=== PATIENT | male | born 1965 | race Caucasian/White ===

== ENCOUNTER 2024-08-22 12:00 | Emergency (ER) | payer OTHER, SELFPAY ==
[2024-08-22 12:13] VITALS: BP 146/96; PULSE 80; RESP 16; TEMP 36.3; O2SAT 98
[2024-08-22 12:30] VITALS: BP 146/97; PULSE 78; RESP 16; O2SAT 98
--- OUTSIDE RECORDS SUMMARY | 2024-08-22 13:05 | XMS_ITS | Clinical Summary ---
Author Organization [facility] Address [address] [place] [address] Phone Care Team Providers Care Resort Keeper Name Role Phone Ricco Teran MD Primary Care Provider Allergies No known active allergies Medications acetaminophen (TYLENOL) 500 mg tablet Take 2 Tablets (1,000 mg) by mouth every 8 hours. 3 Active docusate sodium (COLACE) 100 mg capsule Take 1 Capsule (100 mg) by mouth 2 times daily. 3 Active oxyCODONE (ROXICODONE) 5 mg tabletIndicatio ns:Contusion of abdominal wall, initial encounter Take 1 Tablet (5 mg) by mouth every 4 hours as needed for Pain. Max Daily Amount: 6 tablets 30 Tablet 3 Active sildenafiL (VIAGRA) 100 mg tabletIndicatio ns:Erectile dysfunction, unspecified erectile dysfunction type Take 1 Tablet (100 mg) by mouth 1 time daily as needed for Erectile Dysfunction. Do NOT take within 24 hours of taking nitroglycerin 30 Tablet 2 3 Active naloxone (NARCAN) 4 mg/spray [place], Non-Aerosol EMERGENCY USE ONLY: Administer 1 spray (4 mg) in one nostril one time. May repeat in alternating nostrils every 2-3 min until responsive or EMS arrives. 2 Each 3 4 Active empagliflozin (Jardiance) 10 mg tablet Take 1 Tablet (10 mg) by mouth daily in the morning. 90 Tablet 3 4 Active furosemide (LASIX) 20 mg tablet TAKE 1 TAB BY MOUTH 1 TIME DAILY NEEDED FOR WEIGHT GAIN 3 POUNDS OVERNIGHT/5 POUNDS IN A WEEK, SWELLING, SHORTNESS OF BREATH). 90 Tablet 3 4 Active aspirin (ECOTRIN EC) 81 mg Tablet, Delayed Release (E.C.) TAKE 1 TABLET BY MOUTH EVERY DAY 90 Tablet 3 4 Active methocarbamoL (ROBAXIN) 500 mg tablet TAKE 1 TABLET (500 MG) BY MOUTH 4 TIMES DAILY. 90 Tablet 4 Active ezetimibe (ZETIA) 10 mg tablet Starting 01/10: Take 1 Tablet (10 mg) by mouth daily. 90 Tablet 3 5 Active atorvastatin (LIPITOR) 40 mg tablet Take 1 Tablet (40 mg) by mouth daily at bedtime. 90 Tablet 3 5 Active spironolactone (ALDACTONE) 25 mg tablet Take 1 Tablet (25 mg) by mouth daily. 90 Tablet 3 5 Active losartan (COZAAR) 25 mg tablet Take 1 Tablet (25 mg) by mouth daily. 90 Tablet 3 5 Active nitroglycerin (NITROSTAT) 0.4 mg Tablet, Sublingual Place 1 Tablet (0.4 mg) under tongue every 5 minutes as needed for Chest Pain. 25 Tablet 3 5 Active clopidogreL (PLAVIX) 75 mg Tablet Take 1 Tablet (75 mg) by mouth daily. 100 Tablet 3 5 Active metoprolol succinate (TOPROL XL) 50 mg Extended Release 24 hour tablet Take 1 Tablet (50 mg) by mouth daily. 90 Tablet 2 5 Active Active Problems Patient Care Coordination No te Formatting of this note migh t be different from the original. Dr Heard Audit Manager AWV 12/18/2018, 12/22/19, 05/03/2022, 01/27/2024 Problem Noted Date Diagnosed Date ICD (implantable cardioverter-defibrillator) in place 08/03/2024 Prediabetes 01/27/2024 MRSA bacteremia 01/13/2024 Septic thrombophlebitis 01/13/2024 Pneumonia of right upper lobe due to infectious organism 01/12/2024 Overview (03/16/2024): CT 04/07 Right upper lobe area of increased density now has more the appearance of atelectasis. Interval resolution of two opacities present adjacent to this. History of [place] (myocardial infarction) 01/08/2024 Essential hypertension 05/01/2023 HFrEF (heart failure with reduced ejection fract ion) 01/25/2023 Overview (01/24/2024): Echo EF 30% 01/05 Echo EF 40% 04/06 Echo EF 45-50% 01/06 Echo EF 50% 02/05 Anginal equivalent 01/24/2023 Coronary artery disease of n ative artery of [place] heart with stable angina pectoris 01/04/2023 Overview (01/13/2024): Cath 01/05 Mid LAD 90%, 1st Diag 85%, Mid Cx 45% Successful PCI of mid LAD with LIZETH. Cath 01/06 LAD patent proximal and mid segment stent with modest amount of restenosis. Between these stents is 70-80% diffuse narrowing. LIZETH Circumflex unremarkable & RCA patent with mild diffuse disease. Alcohol abuse 10/10/2020 Overview (10/10/2020): Hosp 09/26- for alcohol and meth use. [place] 600 mg HS Gabapentin 300 mg TID Vivitrol 380 mg IM Thiamine Zyprexa 15 mg HS NAC 600 mg QID Aristada [address] Horvath Methamphetamine use disorder, mild 10/10/2020 Low vitamin B12 level 09/27/2020 Vitamin D deficiency 09/27/2020 Pure hypercholesterolemia 12/23/2018 Overview (12/23/2018): ASCVD 10 year risk 3.9% 12/23/2018 ADD (attention deficit disorder) 12/18/2018 Rupture of left distal biceps tendon 08/06/2018 Erectile dysfunction 06/28/2005 Resolved Problems Problem Noted Date Diagnosed Date Resolved Date Coronary artery disease invo lving [place] coronary artery of [place] heart without angina pectoris 05/05/2024 07/27/2024 Benign hypertension 05/05/2024 07/28/19 25 Mixed hyperlipidemia 05/05/2024 025 Cavitary lesion of lung 01/14/202406/14 S/P coronary artery stent placement 01/13/2024 07/27/2024 Pleuritic chest pain 01/13/2024 024 GERARDO (acute kidney injury) 01/12/2024 NSTEMI (non-ST elevated myoc ardial infarction) 01/08/2024 08/18/2024 Contusion of abdominal wall 02/04/2023 01/24/2024 Closed fracture of left elbow 02/01/2023 08/18/2024 Closed displaced fracture of olecranon process with intraarticular extension of left ulna 02/01/2023 08/18/2024 Dislocation of left radial head 02/01/2023 08/18/2024 Closed displaced fracture of coronoid process of left ulna 02/01/2023 08/18/2024 Preoperative cardiovascular examination 02/01/2023 01/24/2024 Chronic HFrEF (heart failure with reduced ejection fraction) 02/01/2023 01/24/2024 Hx of coronary artery disease 01/25/2023 01/24/2024 Nausea vomiting and diarrhea 01/25/2023 01/24/2024 Coronary artery disease with stable angina pectoris 01/25/2023 01/24/2024 Acute on chronic HFrEF (hear t failure with reduced ejection fraction) 01/08/2023 01/24/2024 Hypoxia 01/08/2023 01/24/2024 Shortness of breath 01/08/2023 01/24/20 24 Edema of right lower extremity 01/05/2023 01/24/2024 Chest pain 01/04/2023 01/24/2024 New onset of congestive heart failure 01/04/2023 01/24/2024 Ischemic Cardiomyopathy 01/04/202301/13 Rash 01/19/2020 01/24/2024 Family hx-leukemia 12/22/2018 9 Overview (12/22/2018): Mother was DXed Family history of lymphoma 12/22/2018 0 12/23/2018 Overview (12/22/2018): Father was Dx's Family history of colon canc er requiring screening colonoscopy 12/22/2018 12/23/2018 Overview (12/22/2018): Mother Dx's Unilateral recurrent inguina l hernia without obstruction or gangrene, left 06/14/2015 12/15/2018 Unilateral inguinal hernia, right 06/14/2015 12/15/2018 Methotrexate, mcfp, current use 09/23/2013 09/23/2013 Methamphetamine addiction 09/23/2013 Tobacco use disorder 09/23/2013 019 Cellulitis of pinna 09/22/2013 12/16/19 19 Neck pain 06/16/2011 09/22/2013 Unspecified disorder of male genital organs 06/28/2005 12/13/2009 Screening for diabetes mellitus 06/28/2005 12/13/2009 Screening for lipoid disorders 06/28/2005 12/13/2009 Other and unspecified noninf ectious gastroenteritis and colitis(558.9) 06/28/200512/13 Routine general medical exam ination at a health care facility 06/19/2004 12/13/2009 Family history of diabetes mellitus 06/19/2004 12/15/2018 Tobacco use disorder 06/19/2004 019 Encounters Date Type Department Care Team Description 08/18/2024 External Device Data STL ABSTRACTION Provider, Abstract 08/04/2024 External Device Data STL ABSTRACTION Provider, Abstract 07/28/2024 External Device Data STL ABSTRACTION Provider, Abstract 06/30/2024 External Device Data STL ABSTRACTION Provider, Abstract 06/24/2024 External Device Data STL ABSTRACTION Provider, Abstract 06/24/2024 External Device Data STL ABSTRACTION Provider, Abstract 06/23/2024 External Device Data STL ABSTRACTION Provider, Abstract 06/23/2024 External Device Data STL ABSTRACTION Provider, Abstract 06/17/2024 Abstract [facility] Internal [facility] [place] [id number] [place] [id number] Ricco Teran MD from Last 3 Months Immunizations Immunization Administration Dates Next Due (ADACEL/BOOSTRIX)(10 YR UP) TDAP VACCINE, 0.5ML, IM 01/31/2023,06/15/2014,12/12/2009 Influenza Seasonal Unspecifi ed Formulation IM 04/21/2020,04/27/2008 Pneumococcal conjugate, unsp ecified formulation 04/27/2008 Family History Medical History Relation Name Comments Heart Disease Father Leukemia Father Lymphoma Father Cancer Mother Colon Cancer Mother Hypertension Mother Leukemia Mother Lung Cancer Mother Other Mother Carl Maradiaga Relation Name Status Comments Father Mother Social History Tobacco Use Types Packs/Day Years Used Date Smoking Tobacco: Former Cigarettes 0.5 10 1 06/12/2005 - 04/11/2016 Passive Smoke Exposure: Past Smokeless Tobacco: Never Tobacco Cessation:Counseling Given: Not Answered Alcohol Use Standard Drinks/Week Comments Yes 4.2 (1 standard drink = 0.6 oz p ure alcohol) drinks every 4 days Feeling Safe Answer Date Recorded Are you in a relationship wi th someone who hurts you emotionally and/or physically? 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 Gender Identity Not on file Sexual Orientation Not on file Occupation Industry Job Start Date Job End Date Not on file Not on file Not on file Not on file Last Filed Vital Signs Vital Sign Reading Time Taken Comments Blood Pressure 170/100 05/05/2024 10:02 AM MUSSEL FARMER Pulse 98 05/05/2024 10:02 AM MUSSEL FARMER Temperature 36.8 C (98.2 F) 01/17/2024 6:07 AM CDT Respiratory Rate 16 01/27/2024 11:04 AM CDT Oxygen Saturation 100% 05/05/2024 10:02 AM MUSSEL FARMER Inhaled Oxygen Concentration - - Weight 78 kg (172 lb) 05/05/2024 10:02 AM MUSSEL FARMER Height 170.2 cm (5' 7 ) 05/05/2024 10:02 AM MUSSEL FARMER Body Mass Index 26.94 05/05/2024 10:02 AM MUSSEL FARMER Plan of Treatment Upcoming Encounters Date Type Department Care Team (Late st Contact Info) Description 08/25/2024 8:30 AM CDT Office Visit [facility] [place] [address] [facility] [address] [place] [phone] Allan Heard MD [address] [facility] [address] [place] [address] 11/02/2024 10:00 AM CDT Office Visit [facility] [place] [address] [facility] [address] [place] [address] Xiomara Beaulieu NP [facility] [address] [facility] [address] [place] [address] Health Maintenance Due Date Last Done Comments HEPATITIS B VACCINES (1 of 3 - 19+ 3-dose series) 1984 FIT-DNA Q 3 years 2010 FIT/FOBT Q 1 year 2010 Flex Sig/CT Colonography Q 5 years 2010 ZOSTER VACCINE (1 of 2) 2015 INFLUENZA VACCINE (#1) 2023 04/21/2020, 2008 COVID-19 Vaccine (2023-2 5 season) 2023 08/18/2020, 07/28/2020 Preventative Visit- Commercial 04/15/2024 1 , 05/03/2022, 12/18/2018, Additional history exists Pre-Diabetes and Diabetes Screening 01/07/2027 01/08/2024, 01/04/2023 COLORECTAL SCREENING 02/10/2029 02/10/2019, 02/11/20 Colorectal Cancer Screening 02/10/2029 DTAP/TDAP/TD VACCINES (4 - T d or Tdap) 01/31/2033 01/31/2023, 06/15/2014, 12/12/2009 Abdominal Aortic Aneurysm (A AA) Screening Completed 03/14/2024 Goals Goal Patient Goal Type Associated Problems Recent Progress Patient-Stated? Author Heart Failure Goal Care Plan Heart Failure Problem No Jeffry, Ricco A, MD Heart Failure Goal Care Plan Heart Failure Problem No Ricco Teran MD Heart Failure Goal Care Plan Heart Failure Problem Ricco Arevalo MD Heart Failure Goal Care Plan Heart Failure Problem No Zahira Wynne LPN Heart Failure Goal Care Plan Heart Failure Problem No Zahira Wynne, ENROLLMENT MANAGEMENT COORDINATOR Medical Devices Implanted Type Area Turner Splitter Machine Operator Device Identifier Shelf Expiration Date Model / Serial / Lot Mesh Parietex Progrip [id number] - [id number] Implanted:Qty: 1 on 04/25/2016 by Franicsco Murrieta MD at [facility] Mesh Right: Inguinal COVIDIEN- [place] SURG [id number] 08/12/2020 [id number] / / [id number] Plate Lcp Adaption 2.4mm 247.366 - Sload 29 Sterilized Jan 31, 2023 Implanted:Qty: 1 on 02/05/2023 by Deep France MD at [facility] Plate Left: Elbow J&J- DEPUY SYNTHES 247.366 / LOAD 29 STERILIZED JAN 31, 2023 / Plate Olecranon Va-Lcp 02.107.304 - Sload 113 Sterilized Feb 02, 2023 Implanted:Qty: 1 on 02/05/2023 by Deep France MD at [facility] Plate Left: Elbow J&J- DEPU[employer] SY[employer]THES 02.107.304S / LOAD 113 STERILIZED FEB 02, 2023 / Plate-Y Lcp 2.4mm 3hd Hole 249.669 - Sload 29 Sterilized Jan 31, 2023 Implanted:Qty: 1 on 02/05/2023 by Deep France MD at [facility] Plate Left: Elbow J&J- [employer]PU[employer] SY[employer]ES 249.669 / LOAD 29 STERILIZED JAN 31, 2023 / Screw Cortex Slftp T8 2.4x16mm 201.766 - Sload 29 Sterilized Jan 31, 2023 Implanted:Qty: 1 on 02/05/2023 by Deep France MD at [facility] Screw Left: Elbow J&J- DEPU[employer] SY[employer]ES 201.766 / LOAD 29 STERILIZED JAN 31, 2023 / Screw St Va Loc 2.7x26mm 02.211.026 - Sload 15 Sterilized Feb 04, 2023 Implanted:Qty: 1 on 02/05/2023 by Deep France MD at [facility] Screw Left: Elbow J&J- DEPUY SYN[employer]ES 02.211.026 / LOAD 15 STERILIZED FEB 04, 2023 / Screw St Va Loc 2.7x20mm 02.211.020 - Sload 15 Sterilized Feb 04, 2023 Implanted:Qty: 1 on 02/05/2023 by Deep France MD at [facility] Screw Left: Elbow J&J- DEPUY SY[employer]ES 02.211.020 / LOAD 15 STERILIZED FEB 04, 2023 / Screw St Va Loc 2.7x34mm 02..034 - Sload 15 Sterilized Feb 04, 2023 Implanted:Qty: 1 on 02/05/2023 by Deep France MD at [facility] Screw Left: Elbow J&J- DEPU[employer] SYNTHES 02.211.034 / LOAD 15 STERILIZED FEB 04, 2023 / Screw St Va Loc 2.7x60mm 02..060 - Sload 15 Sterilized Feb 04, 2023 Implanted:Qty: 1 on 02/05/2023 by Deep France MD at [facility] Screw Left: Elbow J&J- DEPUY SYNTHES 02.211.060 / LOAD 15 STERILIZED FEB 04, 2023 / Screw St Va Loc 2.7x50mm 02.211.050 - Sload 15 Sterilized Feb 04, 2023 Implanted:Qty: 1 on 02/05/2023 by Deep France MD at [facility] Screw Left: Elbow J&J- DEPUY SYNTHES 02.211.050 / LOAD 15 STERILIZED FEB 04, 2023 / Screw St Va Loc 2.7x40mm 02.211.040 - Sload 15 Sterilized Feb 04, 2023 Implanted:Qty: 1 on 02/05/2023 by Deep France MD at [facility] Screw Left: Elbow J&J- DEPUY SYNTHES 02.211.040 / LOAD 15 STERILIZED FEB 04, 2023 / Screw Mtphysl St T8 2.7x22mm 02.118.522 - Sload 15 Sterilized Feb 04, 2023 Implanted:Qty: 1 on 02/05/2023 by Deep France MD at [facility] Screw Left: Elbow J&J- DEPUY SYNTHES 02.118.522 / LOAD 15 STERILIZED FEB 04, 2023 / Screw St Loc Stdrv 3.5x20mm 212.106 - Sload 15 Sterilized Feb 04, 2023 Implanted:Qty: 2 on 02/05/2023 by Deep France MD at [facility] Screw Left: Elbow J&J- DEPUY SYNTHES 212.106 / LOAD 15 STERILIZED FEB 04, 2023 / Screw St Loc Stdrv 3.5x18mm 212.105 - Sload 15 Sterilized Feb 04, 2023 Implanted:Qty: 1 on 02/05/2023 by Deep France MD at [facility] Screw Left: Elbow J&J- DE[employer]ES 212.105 / LOAD 15 STERILIZED FEB 04, 2023 / Screw Cortex Slftp 3.5x26mm 204.826 - Sload 15 Sterilized Feb 04, 2023 Implanted:Qty: 1 on 02/05/2023 by Deep France MD at [facility] Screw Left: Elbow J&J- DEPUY SYNTHES 204.826 / LOAD 15 STERILIZED FEB 04, 2023 / 2.0 X 20mm Cchs Lt Implanted:Qty: 2 on 02/05/2023 by Deep France MD at [facility] Screw Left: Elbow SYNTHES LTD Eu[employer]ing 04.334.020 / / Description:[employer] [place] COMP ONETS ON REQUISITION# [id number] Screw Cortex Slftp T8 2.4x26mm 201.776 - Sload 29 Sterilized Jan 31, 2023 Implanted:Qty: 2 on 02/05/2023 by Deep France MD at [facility] Screw Left: Elbow J&J- DEPUY SYNTHES 201.776 / LOAD 29 STERILIZED JAN 31, 2023 / Screw Cortex Slftp T8 2.4x10mm 201.760 - Sload 29 Sterilized Jan 31, 2023 Implanted:Qty: 4 on 02/05/2023 by Deep France MD at [facility] Screw Left: Elbow J&J- DEPUY SYNTHES 201.760 / LOAD 29 STERILIZED JAN 31, 2023 / Stent Synergy Xd 2.65h87uj Evrlms Elut [id number] - [id number] Implanted:Qty: 1 on 01/07/2023 at [facility] Stent Left: Coronary [employer] 12/18/2023 [id number] / / [id number] Stent Synergy Xd 3.0x24mm Evrlms Elut [id number] - [id number] Implanted:Qty: 1 on 01/25/2023 at [facility] Stent N/A: Coronary [employer] 10/19/2023 [id number] / / [id number] Stent Synergy Xd 2.44v55qw Evrlms Elut [id number] - [id number] Implanted:Qty: 1 on 01/09/2024 by Isha Rn Telehealth () MD Julián at [facility] Stent N/A: Heart [employer] [id number] 10/01/2025 [id number] / / [id number] Stent Synergy Xd 3.0x16mm Evrlms Elut [id number] - [id number] Implanted:Qty: 1 on 01/09/2024 by Isha Rn Telehealth () MD Julián at [facility] Stent N/A: Heart [employer] [id number] 07/01/2025 [id number] / / [id number] Radial Head W/ 022mm Hd, 06.5mm Stm, 10(+0)Mm Hd Ht, Ster Implanted:Qty: 1 on 02/05/2023 by Deep France MD at [facility] Left: Elbow [employer] 01/12/2027 09.405.260S / / [id number] Explanted Type Area Turner Splitter Machine Operator Device Identifier Shelf Expiration Date Model / Serial / Lot Screw Cortex Slftp T8 2.4x28mm 201.778 - Sload 29 Sterilized Jan 31, 2023 Explanted:Qty: 1 on 02/05/2023 at [facility] Screw Left: Elbow J&J- DEPUY SYNTHES 201.778 / LOAD 29 STERILIZED JAN 31, 2023 / Screw Cortex Slftp T8 2.4x6mm 201.756 - Sload 29 Sterilized Jan 31, 2023 Explanted:Qty: 1 on 02/05/2023 at [facility] Screw Left: Elbow J&J- DEPUY SYNTHES 201.756 / LOAD 29 STERILIZED JAN 31, 2023 / Radial Head W/ 025mm Hd, 06.5mm Stm, 11 (+0)Mm Hdht, Ster Explanted:Qty: 1 on 02/05/2023 at [facility] Left: Elbow [employer] 07/13/2025 09.405.560S / / [id number] Procedures Procedure Name Priority Date/Time Associated Diagnosis Comments HEMOGLOBIN A1C Stat 01/08/2024 5:45 AM CDT COLONOSCOPY REPORT 02/10/2019 4: 54 PM CDT from Last 3 Months or Most Recently Relevant to Health Maintenance Results * (ABNORMAL) HEMOGLOBIN A1C (01/08/2024 5:45 AM CDT) HEMOGLOBIN A1C 6.1(H) <5.7 % 01/08/2024 11:56 AM CDT [facility] EST. AVG GLUCOSE, A1C 128 mg/dL 01/08/2024 11:56 AM CDT [facility] Blood Venipuncture / Unknown 01/08/2024 5:45 AM CDT 01/08/2024 5:54 AM CDT Narrative [facility] - 01/08/2024 11:56 AM CDT HGB A1C INTERPRETATION NORMAL: <5.7% PRE-DIABETES: 5.7 - 6.4% DIABETES: 6.5% OR GREATER us Gina Martinez NP CHEMISTRY ORDERABLES Final R esult [facility] [id number] [address] [place] [address] * COLONOSCOPY REPORT (02/10/2019 4:54 PM CDT) Narrative Procedure Note Jorge Luis Flaherty MD - 02/10/2019 4:53 PM CDT [facility] Endoscopy Patient Name: Alexi Florian Procedure Date: 02/10/2019 Date of : 1965 Admit Type: Outpatient Attending MD: Jorge Luis Flaherty , Procedure: Colonoscopy Indications: Screening for colorectal malignant neoplasm Providers: Jorge Luis Flaherty Referring MD: Medicines: Propofol per Anesthesia Complications: No immediate complications. Procedure: Informed consent was obtained for the procedure, including moderate sedation after risks were discussed. Based on the pre-procedure assessment, including review of the patient's medical history, medications, allergies, and review of systems, the patient was deemed to be an appropriate candidate for sedation. A timeout was performed. Continuous ECG monitoring, pulse oximetry, blood pressure monitoring, and direct observation were performed. The Colonoscope was introduced through the anus and advanced to the cecum, identified by appendiceal orifice and ileocecal valve. The colonoscopy was somewhat difficult due to inadequate bowel prep. The quality of the bowel preparation was fair. Estimated Blood Loss: Estimated blood loss: none. Findings: A 10 mm polyp was found in the descending colon. The polyp was sessile. The polyp was removed with a cold snare. Resection and retrieval were complete. The exam was otherwise without abnormality. Impression: - Preparation of the colon was fair. - One 10 mm polyp in the descending colon, removed with a cold snare. Resected and retrieved. - The examination was otherwise normal. Recommendation: - Discharge patient to home. - Patient has a contact number available for emergencies. The signs and symptoms of potential delayed complications were discussed with the patient. Return to normal activities tomorrow. Written discharge instructions were provided to the patient. - Repeat colonoscopy in 5 years for surveillance. Jorge Luis Flaherty, 02/10/2019 4:53:39 PM Number of Addenda: [address]; [place] [address] Jorge Luis Falherty MD GI PROCEDURE ORDERABLES Fi nal Result from Last 3 Months or Most Recently Relevant to Health Maintenance Additional Health Concerns Active Problems Noted Date Diagnosed Date Heart Failure Problem 03/16/2024 Heart Failure Problem 03/16/2024 Heart Failure Problem 03/16/2024 Heart Failure Problem 03/16/2024 Heart Failure Problem 03/16/2024 Insurance [address] [address] RX INFOCROSSING Medicaid RX [facility] Commercial RX [employer] (INTERNAL) [facility] RX [place] Commercial [address] [address] Advance Directives For more information, please contact: [phone] * Full Code (Latest Code Status on File) Date Activated Date Inactivated Comments 01/12/2024 1:55 PM 01/17/2024 12:44 PM * Full Code Date Activated Date Inactivated Comments 01/09/2024 7:13 PM 01/10/2024 1:45 PM * Full Code Date Activated Date Inactivated Comments 01/08/2024 11:29 AM 01/09/2024 7:13 PM * Full Code Date Activated Date Inactivated Comments 02/05/2023 10:18 PM 02/08/2023 6:46 PM * Full Code Date Activated Date Inactivated Comments 02/01/2023 12:56 AM 02/05/2023 10:18 PM Care Teams Resort Keeper Relationship Specialty Start Date End Date Ricco Teran MD PCP - General Internal Medicine 12/08/18
--- OUTSIDE RECORDS SUMMARY | 2024-08-22 13:05 | XMS_ITS | Encounter Summary ---
Author Organization [facility] Address 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 Gender Identity Not on file Sexual Orientation Not on file documented as of this encounter Plan of Treatment Upcoming Encounters Date Type Department Care Team (Late st Contact Info) Description 08/25/2024 8:30 AM CDT Office Visit [facility] Heart and Vascular At [address] [place] [address] Allan Heard MD [address] [place] [address] [address] [place] [address] 11/02/2024 10:00 AM CDT Office Visit [facility] Heart and Vascular At [address] [place] [address] Xiomara Beaulieu, FIELD CROP II FARMWORKER [address] [facility] [address] [place] [id number] documented as of this encounter Visit Diagnoses Diagnosis Abdominal pain, unspecified site- Primary documented in this encounter Additional Health Concerns Infection Onset Date Last Indicated Resolved Time R/O COVID-19 01/04/2023 01/04/2023 01/04/2023 9:36 PM CDT R/O GI Pathogen 01/25/2023 01/25/2023 01/26/2023 4 :08 PM CDT R/O COVID-19 01/12/2024 01/12/2024 01/12/2024 12:2 1 PM CDT MRSA Comment:01/12/24 blood 01/12/2024 01/12/2024 02/11/2024 1:16 AM CDT documented as of this encounter Care Teams Neonatal Nurse Relationship Specialty Start Date End Date Ricco Teran MD PCP - General Internal Medicine 12/08/18 documented as of this encounter
--- OUTSIDE RECORDS SUMMARY | 2024-08-22 13:05 | XMS_ITS | Referral Summary ---
Author Organization [facility] Address [address] [place] [address] Care Team Providers Care Laborer Cheesemaking Name Role Phone Ricco Teran MD Primary Care Provider [phone] Allergies No known active allergies Medications meloxicam (MOBIC) 15 mg tablet Take 1 tablet (15 mg total) by mouth daily 30 tablet 3 Active amoxicillin-cla vulanate (AUGMENTIN) 875-125 mg per tablet Take 1 tablet by mouth every 12 (twelve) hours 14 tablet 3 Active aspirin 81 mg enteric coated tablet Take 1 tablet (81 mg total) by mouth daily 3 Active atorvastatin (LIPITOR) 40 mg tablet Take 1 tablet (40 mg total) by mouth daily 3 Active carvediloL (COREG) 6.25 mg tablet Take 1 tablet (6.25 mg total) by mouth 2 times daily 3 Active losartan (COZAAR) 25 mg tablet Take 1 tablet (25 mg total) by mouth daily 3 Active nitroglycerin (NITROSTAT) 0.[address] 1 tablet (0.4 mg total) under the tongue every 5 minutes as needed for chest pain 3 Active sildenafiL (VIAGRA) 100 mg tablet Take 1 tablet (100 mg total) by mouth daily as needed for erectile dysfunction 1 Active spironolactone (ALDACTONE) 25 mg tablet Take 1 tablet (25 mg total) by mouth daily 3 Active ticagrelor (BRILINTA) 90 mg tablet Take 1 tablet (90 mg total) by mouth 2 (two) times a day 3 Active triamcinolone (KENALOG) 0.1 % cream Apply topically 2 (two) times a day 30 g 4 Active diphenhydrAMINE 25 mg capsule Take 1 tablet/capsule (25 mg total) by mouth every 6 (six) hours as needed for itching 20 capsule 4 Active naproxen (NAPROSYN) 500 mg tablet Take 1 tablet (500 mg total) by mouth 2 (two) times a day as needed for pain Take with food. 20 tablet 4 Active traMADoL (ULTRAM) 50 mg tablet Take 1 tablet (50 mg total) by mouth every 6 (six) hours as needed for pain for up to 15 doses 15 tablet 4 Active cyclobenzaprine (FLEXERIL) 10 mg tabletIndicatio ns:Muscle Spasm Take 1 tablet (10 mg total) by mouth every 8 (eight) hours as needed for muscle spasms for up to 15 doses 15 tablet 4 Active Active Problems Problem Noted Date Diagnosed Date Cellulitis of right knee 12/22/2022 Contusion of face 11/01/2021 Upper respiratory tract infection 11/03/2020 Cellulitis of right elbow 11/03/2020 Tonsillitis 11/03/2020 Closed fracture of nasal bones 03/16/2019 Overview (03/16/2019): Added automatically from request for surgery [id number] Immunizations Immunization Administration Dates Next Due Pfizer SARS-CoV-2 Monovalent Vaccination (12+ Yrs) PURPLE 08/18/2020,07/28/2020 Tdap 01/31/2023 Social History Tobacco Use Types Packs/Day Years Used Date Smoking Tobacco: Some Days Cigarettes Last attempted to quit: 2018 Cigars Smokeless Tobacco: Never Tobacco Cessation:Ready to Q uit: Not Asked; Counseling Given: Not Answered Alcohol Use Standard Drinks/Week Comments Yes 6 (1 standard drink = 0.6 oz pur e alcohol) beer every 2-3 days Personal Safety Answer Date Recorded Have you ever been in or are you currently in a harmful physical or emotional relationship or is someone making you feel afraid or unsafe? 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 Gender Identity Not on file Sexual Orientation Not on file Last Filed Vital Signs Vital Sign Reading Time Taken Comments Blood Pressure 145/93 03/14/2024 8:00 AM AMMONIA REFRIGERATION TECHNICIAN Pulse 57 03/14/2024 9:06 AM AMMONIA REFRIGERATION TECHNICIAN Temperature 37.1 C (98.7 F) 03/14/2024 6:36 AM AMMONIA REFRIGERATION TECHNICIAN Respiratory Rate 16 03/14/2024 8:48 AM AMMONIA REFRIGERATION TECHNICIAN Oxygen Saturation 97% 03/14/2024 9:06 AM AMMONIA REFRIGERATION TECHNICIAN Inhaled Oxygen Concentration - - Weight 82.1 kg (180 lb 14.4 oz) 03/14/2024 6:36 AM AMMONIA REFRIGERATION TECHNICIAN Height 170.2 cm (5' 7 ) 03/14/2024 6:36 AM AMMONIA REFRIGERATION TECHNICIAN Body Mass Index 28.33 03/14/2024 6:36 AM AMMONIA REFRIGERATION TECHNICIAN Plan of Treatment Not on file Insurance [facility] [employer] Care Teams Laborer Cheesemaking Relationship Specialty Start Date End Date Ricco Teran MD PCP - General Internal Medicine 03/25/19
--- OUTSIDE RECORDS SUMMARY | 2024-08-22 13:05 | XMS_ITS | Encounter Summary ---
Author Organization [facility] Address [address] [place] [address] Care Team Providers Care Parachute Supervisor Name Role Phone Ricco Teran MD Primary Care Provider [phone] Encounter Details Date Type Department Care Team (Late st Contact Info) Description 10/01/2003 Outpatient Historical [facility] Internal Medicine Medical [place] A [facility] [address] [place] [address] [address] [place] [address] Patric Chavarria MD [address] [place] [address] [address] [place] [address] Social History Tobacco Use Types Packs/Day Years Used Date Smoking Tobacco: Never Assessed Sex and Gender Information Value Date Recorded Sex Assigned at Not on file Legal Sex Male 3:08 AM PROOF TESTER Gender Identity Not on file Sexual Orientation Not on file documented as of this encounter Plan of Treatment Upcoming Encounters Date Type Department Care Team (Late st Contact Info) Description 08/25/2024 8:30 AM CDT Office Visit [facility] Heart and Vascular At [address] [place] [address] Allan Heard MD [address] [place] [address] [address] [place] [address] 11/02/2024 10:00 AM CDT Office Visit [facility] Heart and Vascular At [facility] [address] [facility] [address] [place] [address] Xiomara Beaulieu NP [address] [facility] [address] [place] [address] documented as of this encounter Visit Diagnoses Not on filedocumented in this encounter Additional Health Concerns Infection Onset Date Last Indicated Resolved Time R/O COVID-19 01/04/2023 01/04/2023 01/04/2023 9:36 PM CDT R/O GI Pathogen 01/25/2023 01/25/2023 01/26/2023 4 :08 PM CDT R/O COVID-19 01/12/2024 01/12/2024 01/12/2024 12:2 1 PM CDT MRSA Comment:01/12/24 blood 01/12/2024 01/12/2024 02/11/2024 1:16 AM CDT documented as of this encounter Care Teams Parachute Supervisor Relationship Specialty Start Date End Date Ricco Teran MD PCP - General Internal Medicine 12/08/18 documented as of this encounter
--- OUTSIDE RECORDS SUMMARY | 2024-08-22 13:05 | XMS_ITS | Clinical Summary ---
Author Organization [facility] Address [address] [place] [address] Care Team Providers Care Document Photographer Name Role Phone Ricco Teran MD Primary Care Provider [phone] Allergies No known active allergies Medications meloxicam [...] (03/16/2019): Added automatically from request for surgery [id number] Immunizations Immunization Administration Dates Next Due Pfizer SARS-CoV-2 Monovalent Vaccination (12+ Yrs) PURPLE 08/18/2020,07/28/2020 Tdap 01/31/2023 Surgical History Surgery Date Site/Laterality Comments OTHER SURGICAL HISTORY 04/15/2008 - 04/14/2009 LIH repair w/ mesh 04/23 HERNIA REPAIR COLONOSCOPY Medical History Medical History Date Comments Hypertension Adhd Social History Tobacco Use Types Packs/Day Years Used Date Smoking Tobacco: Some Days Cigarettes Last attempted to quit: 2017 Cigars Smokeless Tobacco: Never Tobacco Cessation:Ready to [...] on file Legal Sex Male 12:55 AM 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1 kg (180 lb 14.4 oz) 03/14/2024 6:36 AM ADAPTED PHYSICAL EDUCATION SPECIALIST Height 170.2 cm (5' 7 ) 03/14/2024 6:36 AM ADAPTED PHYSICAL EDUCATION SPECIALIST Body Mass Index 28.33 03/14/2024 6:36 AM ADAPTED PHYSICAL EDUCATION SPECIALIST Plan of Treatment Health Maintenance Due Date Last Done Comments Colon Cancer Screening-Colonoscopy 1965 Depression Screening 1965 Hepatitis C Screening 1965 Prostate Cancer Screening-PSA 1965 Hepatitis B Screening 1983 Regular Well Visit/Exam 18-64 1983 Pneumococcal vaccine <65 (2 of 2 - PPSV23) 06/22/2008 04/27/2008 Zoster Vaccine (1 of 2) 2015 Covid-19 Vaccine (3 - season) 12/15/202309/2020, 07/28/2020 Influenza Vaccine (#1) 2023 04/21/2020, 2008 DTaP/Tdap/Td Vaccine (4 - Td or Tdap) 01/31/2033 01/31/2023, 06/15/2014, 12/12/2009 Insurance [employer] [address] [employer] Care Teams Document Photographer Relationship Specialty Start Date End Date Ricco Teran MD PCP - General Internal Medicine 03/25/19
--- OUTSIDE RECORDS SUMMARY | 2024-08-22 13:05 | XMS_ITS | Encounter Summary ---
Author Organization [facility] Address [address] [place] [address] Care Team Providers Care Senior Bookkeeper Name Role Phone Ricco Teran MD Primary Care Provider [phone] Encounter Details Date Type Department Care Team (Late st Contact Info) Description 11/28/2000 Outpatient Historical [facility] Internal Medicine Medical [place] A [facility] [address] [place] [address] [address] [place] [address] Patric Chavarria MD [address] [place] [address] [address] [place] [address] Social History Tobacco Use Types Packs/Day Years Used Date Smoking Tobacco: Never Assessed Sex and Gender Information Value Date Recorded Sex Assigned at Not on file Legal Sex Male 3:08 AM DESULFURIZER HAND Gender Identity Not on file Sexual Orientation Not on file documented as of this encounter Plan of Treatment Upcoming Encounters Date Type Department Care Team (Late st Contact Info) Description 08/25/2024 8:30 AM CDT Office Visit [facility] Heart and Vascular At [address] [place] [address] Allan Heard MD [address] [place] [address] [address] [place] [address] 11/02/2024 10:00 AM CDT Office Visit [facility] Heart [facility] Vascular At [facility] [address] [facility] [address] [place] [address] Xiomara Beaulieu NP [address] [facility] [address] [place] [address] documented as of this encounter [...] documented as of this encounter Care Teams Senior Bookkeeper Relationship Specialty Start Date End Date Ricco Teran MD PCP - General Internal Medicine 12/08/18 documented as of this encounter
--- OUTSIDE RECORDS SUMMARY | 2024-08-22 13:05 | XMS_ITS | Encounter Summary ---
Author Organization [facility] Address [address] [place] [address] Care Team Providers Care Cabinet Worker Name Role Phone Ricco Teran MD Primary Care Provider [phone] Encounter Details Date Type Department Care Team (Late st Contact Info) Description 11/22/2000 Outpatient Historical [facility] Cesar George MD [address] [place] [address] [place], Authorized P NO ADDRESS ON FILE Unspecified asthma(493.90) (Primary Dx) Social History Tobacco Use Types Packs/Day Years Used Date Smoking Tobacco: Never Assessed Sex and Gender Information Value Date Recorded Sex Assigned at Not on file Legal Sex Male 3:08 AM HOT MILL TIN ROLLER Gender Identity Not on file Sexual Orientation Not on file documented as of this encounter Plan of Treatment Upcoming Encounters Date Type Department Care Team (Late st Contact Info) Description 08/25/2024 8:30 AM CDT Office Visit [facility] Heart and Vascular At [address] [place] [address] Allan Heard MD [address] [place] [address] [address] [place] [address] 11/02/2024 10:00 AM CDT Office Visit [facility] Heart and Vascular At [address] [place] [address] Xiomara Beaulieu NP [address] [facility] [address] [place] [address] documented as of this encounter Visit Diagnoses Diagnosis Unspecified asthma(493.90)- Primary Unspecified asthma documented in this encounter Additional Health Concerns Infection Onset Date Last Indicated Resolved Time R/O COVID-19 01/04/2023 01/04/2023 01/04/2023 9:36 PM CDT R/O GI Pathogen 01/25/2023 01/25/2023 01/26/2023 4 :08 PM CDT R/O COVID-19 01/12/2024 01/12/2024 01/12/2024 12:2 1 PM CDT MRSA Comment:01/12/24 blood 01/12/2024 01/12/2024 02/11/2024 1:16 AM CDT documented as of this encounter Care Teams Cabinet Worker Relationship Specialty Start Date End Date Ricco Teran MD PCP - General Internal Medicine 12/08/18 documented as of this encounter
--- OUTSIDE RECORDS SUMMARY | 2024-08-22 13:05 | XMS_ITS | Encounter Summary ---
Author Organization [facility] Address [address] [place] [address] Care Team Providers Care Dust Brush Assembler Name Role Phone Ricco Teran MD Primary Care Provider [phone] Reason for Visit * Reason Onset Date Comments prior authorization- medication 02/20/2023 Encounter Details Date Type Department Care Team (Late st Contact Info) Description 02/20/2023 Telephone [facility] Primary Care [address] [place] [address] [place] [address] [address] prior authorization- medication Social History Tobacco Use Types Packs/Day Years Used Date Smoking Tobacco: Former Cigarettes 0.5 10 1 06/12/2005 - 04/11/2016 Smokeless Tobacco: Never Alcohol Use Standard Drinks/Week Comments Yes 4.2 (1 standard drink = 0.6 oz p ure alcohol) Food Insecurity Answer Date Recorded Social/Environmental Concerns No concerns Transportation Needs Answer Date Record ed Social/Environmental Concerns No concerns Housing Stability Answer Date Recorded Social/Environmental Concerns No concerns Utility Needs Answer Date Recorded Social/Environmental Concerns No concerns Sex and Gender Information Value Date Recorded Sex Assigned at Not on file Legal Sex Male 3: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 Please advise to pharmacy as the request must be process with patient primary physician. Call-back Number: [phone] The patient's preferred pharmacy is [id number] - [place], [place] - [phone] ING PRESS OPERATOR documented in this encounter Plan of Treatment Upcoming Encounters Date Type Department Care Team (Late st Contact Info) Description 08/25/2024 8:30 AM CDT Office Visit [facility] Heart and Vascular At [address] [place] [address] Allan Heard MD [address] [place] [address] [address] [place] [address] 11/02/2024 10:00 AM CDT Office Visit [facility] Heart and Vascular At [address] [place] [address] Xiomara Beaulieu NP [address] [place] [address] [address] [place] [address] documented as of this encounter Visit Diagnoses Not on filedocumented in this encounter Additional Health Concerns Infection Onset Date Last Indicated Resolved Time R/O COVID-19 01/12/2024 01/12/2024 01/12/2024 12:2 1 PM CDT MRSA Comment:01/12/24 blood 01/12/2024 01/12/2024 02/11/2024 1:16 AM CDT documented as of this encounter Care Teams Dust Brush Assembler Relationship Specialty Start Date End Date Ricco Teran MD PCP - General Internal Medicine 12/08/18 documented as of this encounter
--- OUTSIDE RECORDS SUMMARY | 2024-08-22 13:05 | XMS_ITS | Encounter Summary ---
Author Organization [facility] Address [address] [place] [address] Care Team Providers Care Network Technician Name Role Phone Ricco Teran MD Primary Care Provider [phone] Encounter Details Date Type Department Care Team (Latest Contact Info) Description 02/29/2004 Inpatient Historical HIS PATIENT IN A BED Luci Hollingsworth MD [address] [facility] [address] [place] [address] Annie Horvath MD [address] [place] [address] [address] [place] [address] DEPRESS PSYCHOSIS-UNSPEC (Primary Dx) Social History Tobacco Use Types Packs/Day Years Used Date Smoking Tobacco: Never Assessed Sex and Gender Information Value Date Recorded Sex Assigned at Not on file Legal Sex Male 3:08 AM SUPERVISOR DRY PASTE Gender Identity Not on file Sexual Orientation Not on file documented as of this encounter Plan of Treatment Upcoming Encounters Date Type Department Care Team (Late st Contact Info) Description 08/25/2024 8:30 AM CDT Office Visit [facility] Heart and Vascular At [facility] [address] [facility] [address] [place] [address] Allan Heard MD [address] [facility] [address] [place] [address] 11/02/2024 10:00 AM CDT Office Visit [facility] Heart and Vascular At [facility] [address] [facility] [address] [place] [address] Xiomara Beaulieu NP [address] [facility] [address] [place] [address] documented as of this encounter Visit Diagnoses Diagnosis Major depressive disorder, single episode, unspecified- Primary documented in this encounter Additional Health Concerns Infection Onset Date Last Indicated Resolved Time R/O COVID-19 01/04/2023 01/04/2023 01/04/2023 9:36 PM CDT R/O GI Pathogen 01/25/2023 01/25/2023 01/26/2023 4 :08 PM CDT R/O COVID-19 01/12/2024 01/12/2024 01/12/2024 12:2 1 PM CDT MRSA Comment:01/12/24 blood 01/12/2024 01/12/2024 02/11/2024 1:16 AM CDT documented as of this encounter Care Teams Network Technician Relationship Specialty Start Date End Date Ricco Teran MD PCP - General Internal Medicine 12/08/18 documented as of this encounter
--- OUTSIDE RECORDS SUMMARY | 2024-08-22 13:05 | XMS_ITS | Encounter Summary ---
Author Organization [facility] Address [address] [place] [address] Care Team Providers Care Guest Experience Representative Name Role Phone Ricco Teran MD Primary Care Provider [phone] Reason for Visit * Reason Comments Medication Assistance Encounter Details Date Type Department Care Team (Late st Contact Info) Description 08/08/2023 Telephone [facility] Primary Care [address] [place] [address] [place] [address] [address] Medication Assistance Social History Tobacco Use Types Packs/Day Years Used Date Smoking Tobacco: Former Cigarettes 0.5 10 1 06/12/2005 - 04/11/2016 Passive Smoke Exposure: Past Smokeless Tobacco: Never Alcohol Use Standard Drinks/Week Comments Not Currently 4.2 (1 standard drink = 0.6 oz p ure alcohol) Feeling Safe Answer Date Recorded Are you in a relationship wi th someone who hurts you emotionally and/or physically? No 04/25/2023 Food Insecurity Answer Date Recorded Social/Environmental Concerns No concerns Transportation Needs Answer Date Record ed Social/Environmental Concerns No concerns Housing Stability Answer Date Recorded Social/Environmental Concerns No concerns Utility Needs Answer Date Recorded Social/Environmental Concerns No concerns Sex and Gender Information Value Date Recorded Sex Assigned at Not on file Legal Sex Male 3:08 AM WIRE WEAVER HELPER Gender Identity Not on file Sexual Orientation Not on file Occupation Industry Job Start Date Job End Date Not on file Not on file Not on file Not on file documented as of this encounter Miscellaneous Notes * Telephone Encounter - Tiffanie Garvey - 08/08/2023 2:31 PM CDT Copied from [facility] #[id number]. Topic: Medication Request >> Aug 08, 2023 2:30 PM Tiffanie Hall wrote: Caller is requesting: Medication - New Request (Not Currently Taking) Medication (Ask patient/caregiver to spell if possible): something for lice Preferred Pharmacy: [facility]/pharmacy #[id number] - [facility] [phone] [address] Patient/Caregiver Callback Number: [phone] (home) Call Notes: Patient had head lice documented in this encounter Plan of Treatment Upcoming Encounters Date Type Department Care Team (Late st Contact Info) Description 08/25/2024 8:30 AM CDT Office Visit [facility] Heart and Vascular At [address] [place] [address] Allan Heard MD [address] [place] [address] 2014 [place] [address] 11/02/2024 10:00 AM CDT Office Visit [facility] Heart and Vascular At [address] [place] [address] Xiomara Beaulieu NP [address] [place] [address] 2014 [place] [address] documented as of this encounter Visit Diagnoses Not on filedocumented in this encounter Additional Health Concerns Infection Onset Date Last Indicated Resolved Time R/O COVID-19 01/12/2024 01/12/2024 01/12/2024 12:2 1 PM CDT MRSA Comment:01/12/24 blood 01/12/2024 01/12/2024 02/11/2024 1:16 AM CDT Assessment Noted Time PHQ-9 Depression Total Score: 2 02/22/20 23 3:02 PM WIRE WEAVER HELPER documented as of this encounter Care Teams Guest Experience Representative Relationship Specialty Start Date End Date Ricco Teran MD PCP - General Internal Medicine 12/08/18 documented as of this encounter
--- OUTSIDE RECORDS SUMMARY | 2024-08-22 13:05 | XMS_ITS | Encounter Summary ---
Author Organization [facility] Address [address] [place] [address] Care Team Providers Care Fruit Rancher Name Role Phone Ricco Teran MD Primary Care Provider [phone] Encounter Details Date Type Department Care Team (Late st Contact Info) Description 07/15/2001 Outpatient Historical [facility] Internal Medicine Medical [place] [facility] [address] [address] Guillaume Villarreal MD NO ADDRESS ON FILE Social History Tobacco Use Types Packs/Day Years Used Date Smoking Tobacco: Never Assessed Sex and Gender Information Value Date Recorded Sex Assigned at Not on file Legal Sex Male 3:08 AM INSURANCE CLAIMS ASSISTANT Gender Identity Not on file Sexual Orientation Not on file documented as of this encounter Plan of Treatment Upcoming Encounters Date Type Department Care Team (Late st Contact Info) Description 08/25/2024 8:30 AM CDT Office Visit [facility] Heart and Vascular At [address] [place] [address] Allan Heard MD [address] [place] [address] 2014 [place] [address] 11/02/2024 10:00 AM CDT Office Visit [facility] Heart and Vascular At [address] [place] [address] Xiomara Beaulieu, SYSTEMS LIBRARIAN [address] [facility] 2014 [place] [address] documented as of this encounter Visit Diagnoses [...] documented as of this encounter Care Teams Fruit Rancher Relationship Specialty Start Date End Date Ricco Teran MD PCP - General Internal Medicine 12/08/18 documented as of this encounter
--- OUTSIDE RECORDS SUMMARY | 2024-08-22 13:05 | XMS_ITS | Clinical Summary ---
Author Organization [facility] Address [address] [place] [address] Care Team Providers Care Child Protective Services Social Worker Name Role Phone Unavailable Primary Care Provider Unavailabl e Source Comments [facility],non-owned Affiliates and Associated Physician Practices is amultiple site organization consisting of ambulatory clinics and hospital sitesin [place], [place]. This disclosure is being madepursuant to the Care Everywhere program and may not contain all information available regarding this patient. Last updated 18.[facility] Events Core Allergies No known active allergies Medications * Be aware that medications may not be up to date on this document. Alwaysverify current medications with the patient. acetaminophen (TYLENOL) 325 MG tablet Take 2 Tabs by mouth every 4 hours as needed for Fever, Pain or Headache. Maximum allowable Acetaminophen amount = 4 Grams (4000 mg) / 24 hours. 100 Tab 2 Active cyclobenzaprin e (FLEXERIL) 5 MG TABS tablet Take 1 Tab by mouth every 8 hours as needed (Spasms). 15 Tab 0 3 Active naproxen (NAPROSYN) 500 MG tablet Take 1 Tab by mouth 2 times daily as needed for Pain. 20 Tab 0 3 Active ibuprofen (MOTRIN) 600 MG tablet Take 1 Tab by mouth every 6 hours as needed for Pain. 20 Tab 0 5 Active ciprofloxacin (CIPRO) 500 MG tablet Take 1 Tab by mouth 2 times daily 14 Tab 0 6 Active metroNIDAZOLE (FLAGYL) 500 MG tablet Take 1 Tab by mouth 3 times daily 15 Tab 0 6 Active HYDROcodone-ac etaminophen (NORCO) 5-325 MG tablet Take 1 Tab by mouth every 6 hours as needed for Pain 15 Tab 0 6 Active HYDROcodone-ac etaminophen (NORCO) 5-325 MG tablet Take 1 Tab by mouth every 4 hours as needed for Pain 20 Tab 6 Active Social History Tobacco Use Types Packs/Day Years Used Date Smoking Tobacco: Former Cigarettes 1 10 Smokeless Tobacco: Never Tobacco Cessation:Ready to Q uit: Yes; Counseling Given: Yes Alcohol Use Standard Drinks/Week Comments Yes 0 (1 standard drink = 0.6 oz pur e alcohol) socially Sex and Gender Information Value Date Recorded Sex Assigned at Not on file Legal Sex Male 5:00 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 Gender Identity Not on file Sexual Orientation Not on file Last Filed Vital Signs Vital Sign Reading Time Taken Comments Blood Pressure 143/95 12/12/2019 11:20 PM CDT Pulse 98 12/12/2019 11:20 PM CDT Temperature 37.1 C (98.7 F) 12/12/2019 11:20 PM CDT Respiratory Rate 17 12/12/2019 11:20 PM CDT Oxygen Saturation 99% 12/12/2019 11:20 PM CDT Inhaled Oxygen Concentration - - Weight 74.8 kg (165 lb) 12/12/2019 11:20 PM CDT Height 170.2 cm (5' 7 ) 12/12/2019 11:20 PM CDT Body Mass Index 25.84 12/12/2019 11:20 PM CDT Plan of Treatment Health Maintenance Due Date Last Done Comments COLOGUARD (AGES 45-75) - COL ON CA SCREENING 1965 COLON MONITORING 1965 COLONOSCOPY - COLON CA SCREENING 1965 CT COLONOGRAPHY - COLON CA SCREENING 1965 Colorectal Cancer Screening 1965 FIT - COLON CA SCREENING 1965 FLEX SIG - COLON CA SCREENING 1965 LIPID TESTING 1965 HIV SCREENING 1980 HEPATITIS C SCREENING 03/14/1983 DTAP/TDAP/TD VACCINES (1 - Tdap) 1984 HEPATITIS B VACCINE (1 of 3 - 19+ 3-dose series) 1984 PNEUMOCOCCAL VACCINE 50+ (1 of 1 - PCV) 2015 ZOSTER VACCINE (1 of 2) 2015 COVID-19 VACCINE ( - 2023-2 5 season) 2023 DEPRESSION SCREENING 04/15/2024 INFLUENZA VACCINE (Season Ended) 2024 04/27/19 09 HIB VACCINE Aged Out No longer eligi ble based on patient's age to complete this topic HPV VACCINE Aged Out No longer eligi ble based on patient's age to complete this topic MENINGOCOCCAL (Group B) VACC INE SHARED DECISION-MAKING Aged Out No longer eligibl e based on patient's age to complete this topic MENINGOCOCCAL GROUPS A/C/Y/W VACCINE Aged Out No longer eligible b ased on patient's age to complete this topic Advance Directives * FULL RESUSCITATION (Latest Code Status on File) Date Activated Date Inactivated Comments 09/04/2011 12:50 PM 09/05/2011 11:11 PM
--- OUTSIDE RECORDS SUMMARY | 2024-08-22 13:05 | XMS_ITS | Encounter Summary ---
Author Organization [facility] Address [address] [place] [address] Care Team Providers Care Wire Weaver Name Role Phone Ricco Teran MD Primary Care Provider [phone] Encounter Details Date Type Department Care Team (Late st Contact Info) Description 11/01/2006 Orders Only [facility] Internal Medicine Medical [place] [facility] [address] [facility] [address] [facility] [place] [address] Patric Chavarria MD [facility] [address] [place] [address] Social History Tobacco Use Types Packs/Day Years Used Date Smoking Tobacco: Never Assessed Sex and Gender Information Value Date Recorded Sex Assigned at Not on file Legal Sex Male 3:08 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 LAST VISIT: 06.28.05 WHO CALLED: Patient called. CURRENT ALLERGY LIST: [facility] PH[facility] NUMBER: [phone] SECTION 1: REQUESTED ACTION kieran 11/01/06 at 03:12 pm: MEDICATION REQUEST: MEDICATIONS: VIAGRA ORAL TABLET 100 MG, 1/2 as directed, 5 Dispensed, 5 Fills, status: NEW PRESCRIPTION, 06/28/2005. did not work , wanting rx for levitra DOCTOR`S RESPONSE: sandra 11/01/06 at 04:09 pm MEDICATIONS: VIAGRA ORAL TABLET 100 MG, 1/2 as directed, 5 Dispensed, 5 Fills, status: DISCONTINUED, 11/01/2006. LEVITRA ORAL TABLET 20 MG, 1/2- 1 tab as directed, 6 Dispensed, 5 Fills, status: NEW PRESCRIPTION, 11/01/2006. needs appt sgs FINAL ACTION: sandra 11/01/06 at 05:11 pm Called pharmacy at 11/01/06 at 05:11 pm. Electronically Signed by: Clarissa Sher on Wednesday, November 01, 2006 documented in this encounter Plan of Treatment Upcoming Encounters Date Type Department Care Team (Late st Contact Info) Description 08/25/2024 8:30 AM CDT Office Visit [facility] Heart and Vascular At [address] [place] [address] Allan Heard MD [address] [place] [address] 2014 [place] [address] 11/02/2024 10:00 AM CDT Office Visit [facility] Heart and Vascular At [address] [place] [address] Xiomara Beaulieu NP [address] [place] [address] 2014 [place] [address] documented as of this encounter Visit Diagnoses [...] documented as of this encounter Care Teams Wire Weaver Relationship Specialty Start Date End Date Ricco Teran MD PCP - General Internal Medicine 12/08/18 documented as of this encounter
--- OUTSIDE RECORDS SUMMARY | 2024-08-22 13:05 | XMS_ITS | Encounter Summary ---
Author Organization [facility] Address [address] [place] [address] Care Team Providers Care Glove Cleaner Name Role Phone Ricco Teran MD Primary Care Provider [phone] Encounter Details Date Type Department Care Team (Late st Contact Info) Description 06/28/2005 Outpatient Historical [facility] Internal Medicine Medical [address] [place] [address] Patric Chavarria MD [address] [place] [address] [address] [place] [address] Social History Tobacco Use Types Packs/Day Years Used Date Smoking Tobacco: Never Assessed Sex and Gender Information Value Date Recorded Sex Assigned at Not on file Legal Sex Male 3:08 AM OCEAN EXPORT AGENT Gender Identity Not on file Sexual Orientation Not on file documented as of this encounter Last Filed Vital Signs Vital Sign Reading Time Taken Comments Blood Pressure 120/70 06/28/2005 1:45 PM OCEAN EXPORT AGENT Pulse 76 06/28/2005 1:45 PM OCEAN EXPORT AGENT Temperature 36.7 C (98 F) 06/28/2005 1:45 PM OCEAN EXPORT AGENT Respiratory Rate - - Oxygen Saturation - - Inhaled Oxygen Concentration - - Weight 787.9 kg (1737 lb) 06/28/2005 1:45 PM OCEAN EXPORT AGENT Height - - Body Mass Index 272.05 06/19/2004 9:15 AM OCEAN EXPORT AGENT documented in this encounter Plan of Treatment Upcoming Encounters Date Type Department Care Team (Late st Contact Info) Description 08/25/2024 8:30 AM CDT Office Visit [facility] Heart and Vascular At [address] [place] [address] Allan Heard MD [facility] [address] [facility] 2014 [place] [address] 11/02/2024 10:00 AM CDT Office Visit [facility] Heart and Vascular At [address] [place] [address] Xiomara Beaulieu NP [address] [place] [address] 2014 [place] [address] documented as of this encounter [...] documented as of this encounter Care Teams Glove Cleaner Relationship Specialty Start Date End Date Ricco Teran MD PCP - General Internal Medicine 12/08/18 documented as of this encounter
--- OUTSIDE RECORDS SUMMARY | 2024-08-22 13:05 | XMS_ITS | Encounter Summary ---
Author Organization [facility] Address [address] [place] [address] Care Team Providers Care Type Caster Name Role Phone Ricco Teran MD Primary Care Provider [phone] Encounter Details Date Type Department Care Team (Latest Contact Info) Description 10/01/2003 Outpatient Historical [facility] JOSE RAFAEL Chavarria, Patric Moran MD 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 Gender Identity Not on file Sexual Orientation Not on file documented as of this encounter Plan of Treatment Upcoming Encounters Date Type Department Care Team (Late st Contact Info) Description 08/25/2024 8:30 AM CDT Office Visit [facility] Heart and Vascular At [address] [place] [address] Allan Heard MD [address] [place] [address] 2014 [place] [address] 11/02/2024 10:00 AM CDT Office Visit [facility] Heart and Vascular At [address] [place] [address] Xiomara Beaulieu, CAPTAIN WAITER/WAITRESS [address] [facility] [address] [place] [address] documented as of this encounter Visit Diagnoses Diagnosis Wheezing- Primary documented in this encounter Additional Health Concerns Infection Onset Date Last Indicated Resolved Time R/O COVID-19 01/04/2023 01/04/2023 01/04/2023 9:36 PM CDT R/O GI Pathogen 01/25/2023 01/25/2023 01/26/2023 4 :08 PM CDT R/O COVID-19 01/12/2024 01/12/2024 01/12/2024 12:2 1 PM CDT MRSA Comment:01/12/24 blood 01/12/2024 01/12/2024 02/11/2024 1:16 AM CDT documented as of this encounter Care Teams Type Caster Relationship Specialty Start Date End Date Ricco Teran MD PCP - General Internal Medicine 12/08/18 documented as of this encounter
--- OUTSIDE RECORDS SUMMARY | 2024-08-22 13:05 | XMS_ITS | Encounter Summary ---
Author Organization [facility] Address [address] [place] [address] Care Team Providers Care Tin Tie Machine Operator Automatic Name Role Phone Ricco Teran MD Primary Care Provider [phone] Encounter Details Date Type Department Care Team (Late st Contact Info) Description 06/19/2004 Outpatient Historical [facility] Internal Medicine Medical [place] [facility] [address] [facility] [address] [address] Anjleica Schaeffer MD Social History Tobacco Use Types Packs/Day Years Used Date Smoking Tobacco: Never Assessed Sex and Gender Information Value Date Recorded Sex Assigned at Not on file Legal Sex Male 3:08 AM ACCESS TECH Gender Identity Not on file Sexual Orientation Not on file documented as of this encounter Last Filed Vital Signs Vital Sign Reading Time Taken Comments Blood Pressure 140/86 06/19/2004 9:15 AM ACCESS TECH Pulse 104 06/19/2004 9:15 AM ACCESS TECH Temperature 37.1 C (98.8 F) 06/19/2004 9:15 AM ACCESS TECH Respiratory Rate 20 06/19/2004 9:15 AM ACCESS TECH Oxygen Saturation - - Inhaled Oxygen Concentration - - Weight 73.5 kg (162 lb) 06/19/2004 9:15 AM ACCESS TECH Height 170.2 cm (5' 7 ) 06/19/2004 9:15 AM ACCESS TECH Body Mass Index 25.37 06/19/2004 9:15 AM ACCESS TECH documented in this encounter Plan of Treatment Upcoming Encounters Date Type Department Care Team (Late st Contact Info) Description 08/25/2024 8:30 AM CDT Office Visit [facility] Heart and Vascular At [facility] [address] [facility] [address] [place] [address] Allan Heard MD [facility] [address] [facility] [address] [facility] 2014 [place] [address] 11/02/2024 10:00 AM CDT Office Visit [facility] Heart and Vascular At [place] [address] [facility] [address] [place] [address] Xiomara Beaulieu NP [address] [facility] [address] [place] [address] documented as of this encounter [...] documented as of this encounter Care Teams Tin Tie Machine Operator Automatic Relationship Specialty Start Date End Date Ricco Teran MD PCP - General Internal Medicine 12/08/18 documented as of this encounter
--- NOTE | 2024-08-22 13:27 | ED_ITS ---
HPI - General Adult General Chief complaint: Ear Stated complaint: Left ear redness and swelling-hearing loss Time Seen by Provider: 08/22/24 12:45 59 YEARS OLD WHITE MALE CAME TO THE ED WITH PAIN, ITCHING, SWELLING AND REDNESS OF THE LEFT EAR AND LEFT CHEEK AREA WORKUP WITH IT THIS MORNING. PATIENT BELIEVED THERE IS POSSIBLE INSECT WENT INSIDE HIS EAR OR BIT HIM IN THE EAR AND LEFT FACE LAST NIGHT WHILE DOING ACTIVITY OUTDOORS LAST NIGHT . HE DENIES ANY FEVER, CHILLS, NAUSEA, VOMITING, DIFFICULTY BREATHING OR SWALLOWING OR SHORTNESS OF BREATH OR CHEST PAIN. Source: patient Related Data Allergies Allergy/AdvReac Type Severity Reaction Status Date / Time No Known Allergies Allergy Verified 08/22/24 12:35 Review of Systems Review of Systems: All systems reviewed & are unremarkable except as noted in HPI and below Exam Narrative: GENERAL APPEARANCE: WELL-DEVELOPED, WELL-NOURISHED SKIN: NORMAL COLOR HEAD: NORMOCEPHALIC, NONTRAUMATIC EYES: CLEAR CONJUNCTIVA ENT: OROPHARYNX NORMAL, , NOSE NORMAL, LEFT EAR PAIN SWOLLEN, WARM TO TOUCH AND DIFFUSELY TENDER, NO FOREIGN BODY, NO BUGS, NO DISCHARGE. LEFT CHEEK SHOWING ERYTHEMA, WARMTH TO TOUCH, PUFFINESS OF THE LEFT LOWER EYELID, NECK: SUPPLE, NONTENDER CHEST AND RESPIRATORY: AIRWAY PATENT, NO RESPIRATORY DISTRESS, NO ACCESSORY MUSCLE USE HEART: REGULAR RATE/RHYTHM ABDOMEN: SOFT, NONTENDER, NO ORGANOMEGALY, QUIET BOWEL SOUNDS VASCULAR: NORMAL PERIPHERAL PULSES, NORMAL CAPILLARY REFILL. MUSCULOSKELETAL: NORMAL RANGE OF MOTION, NONTENDER BACK NEUROLOGIC: ALERT AND ORIENTED ?3, DIRECTOR OF QUANTITATIVE RESEARCH IS NORMAL TESTED, NO GROSS MOTOR DEFICIT Course Vital Signs Vital signs: Vital Signs Temperature 36.3 C L 08/22/24 12:13 Pulse Rate 80 08/22/24 12:13 Respiratory Rate 16 08/22/24 12:13 Blood Pressure 146/96 H 08/22/24 12:13 Pulse Oximetry 98 08/22/24 12:13 Oxygen Delivery Room Air 08/22/24 12:13 Temperature 36.3 C L 08/22/24 12:13 Pulse Rate 78 08/22/24 12:30 Respiratory Rate 16 08/22/24 12:30 Blood Pressure 146/97 H 08/22/24 12:30 Pulse Oximetry 98 08/22/24 12:30 Oxygen Delivery Room Air 08/22/24 12:13 Medical Decision Making [facility] Narrative Medical decision making narrative: PATIENT PRESENTS WITH LOCALIZED ALLERGIC REACTION LIKE SYMPTOMS VITAL SIGNS ARE STABLE PHYSICAL EXAMINATION ABOVE DIFFERENTIAL DIAGNOSIS LOCALIZED ALLERGIC REACTION POSSIBLY SECONDARY TO INSECT BITE, PERICHONDRITIS, CHONDRITIS IN THE ED PATIENT RECEIVED EPINEPHRINE, PREDNISONE AND ZYRTEC, INFECTION IS LESS POSSIBILITY. PATIENT WILL BE DISCHARGED ON LEVAQUIN, PREDNISONE AND ZYRTEC Differential Diagnosis Differential Diagnosis: ABOVE Vital Signs Vital Signs: Vital Signs Temperature 36.3 C L 08/22/24 12:13 Pulse Rate 80 08/22/24 12:13 Respiratory Rate 16 08/22/24 12:13 Blood Pressure 146/96 H 08/22/24 12:13 Pulse Oximetry 98 08/22/24 12:13 Oxygen Delivery Room Air 08/22/24 12:13 Temperature 36.3 C L 08/22/24 12:13 Pulse Rate 78 08/22/24 12:30 Respiratory Rate 16 08/22/24 12:30 Blood Pressure 146/97 H 08/22/24 12:30 Pulse Oximetry 98 08/22/24 12:30 Oxygen Delivery Room Air 08/22/24 12:13 Critical Care Time Critical Care Time Critical Care Time: No Discharge Plan Discharge Clinical Impression: Insect bite, Allergic reaction Patient Disposition: Home Condition: Stable Instructions: Antibiotic Form, Insect Bite or Sting (ED), Allergies (ED) Additional Instructions: RETURN IF SYMPTOMS ARE WORSENING , CALL YOUR FAMILY PHYSICIAN FOR APPOINTMENT, TAKE TYLENOL, IBUPROFEN NEEDED FOR ACHES AND PAIN, CONTINUE HOME MEDICATIONS. Patient Language: Persian Prescriptions: New levofloxacin 750 mg tablet 750 mg PO DAILY Qty: 6 5RF prednisone 20 mg tablet 40 mg PO DAILY 5 Days Qty: 10 0RF Zyrtec 10 mg capsule 10 mg PO BID PRN (Reason: allergy symptoms) Qty: 20 0RF Follow-up/Referrals: Lenin Faarh MD [Physician] - 08/31/24 UNKNOWN,DOCTOR [Primary Care Provider] -
[2024-08-22] MEDS: EPINEPHrine HCL INJ 1 MG/ML AMPUL 0.3 MG IM (13:44)
[2024-08-22] MEDS: predniSONE 20 MG TABLET 60 MG PO (13:45)
[2024-08-22 13:46] VITALS: BP 156/87; PULSE 74; RESP 15; O2SAT 100
[2024-08-22] MEDS: LORATADINE 10 MG TABLET PO (13:46)
[2024-08-22] MEDS: levoFLOXacin 750 MG TABLET PO (14:00)
[2024-08-22] MEDS: HYDROcodone/acetaminophen (*CRX) 5-325 MG TABLET 1 TAB PO (14:00)
[2024-08-22] MEDS: KETOROLAC (*BKC) 60 MG/2 ML VIAL IM (14:01)
[2024-08-22 15:06] VITALS: BP 130/95; PULSE 77; RESP 16; TEMP 37; O2SAT 99
== END 2024-08-22 15:08 | disposition home or self-care (01) ==
PROVIDERS: Emergency Provider Emergency Medicine
DX: S00.462A Insect bite (nonvenomous) of left ear, initial encounter (principal); W57.XXXA Bitten or stung by nonvenomous insect and other nonvenomous arthropods, initial encounter
CPT/HCPCS: 96372; 99284; A9270; J0171; J1885; J7512

== ENCOUNTER 2025-02-07 03:42 | Emergency (ER) | payer OTHER, SELFPAY ==
[2025-02-07] VITALS (12 sets, daily range): BP systolic 119–146; BP diastolic 72–93; PULSE 51–71; RESP 12–26; TEMP 36.6; O2SAT 96–100
--- NOTE | ~2025-02-07 | XR_ITS ---
Examination: XR chest 2V Clinical History: CHEST PAIN Comparison: None Technique: PA and Lateral Findings: Cardiomediastinal silhouette normal size and configuration. Lungs clear. No acute bony abnormality. IMPRESSION: 1. No acute cardiopulmonary findings. Reviewed, dictated and finalized at location R.
--- NOTE | 2025-02-07 03:43 | ECG_ITS ---
Test Date: 2025-02-07 03:51:57 Measurements Intervals [place] Rate: 60 P: 50 NC: 169 QRS: 78 QRSD: 112 T: 75 QT: 419 QTc: 419 Interpretive Statements SINUS RHYTHM INTRAVENTRICULAR CONDUCTION DELAY BORDERLINE ECG No previous ECG available for comparison Electronically Signed On 02-07-2025 08:09:02 CDT by Valente Roman D.O.
--- OUTSIDE RECORDS SUMMARY | 2025-02-07 03:44 | XMS_ITS | Encounter Summary ---
Author Organization [facility] Address [address] [place] [address] Care Team Providers Care Corsets Salesperson Name Role Phone Ricco Teran MD Primary Care Provider [phone] Encounter Details Date Type Department Care Team (Latest Contact Info) Description 10/01/2003 Outpatient Historical [facility] JOSE RAFAEL Chavarria, Patric Moran MD [address] [facility] [address] [address] WHEEZING (Primary Dx) Social History Tobacco Use Types Packs/Day Years Used Date Smoking Tobacco: Never Assessed Sex and Gender Information Value Date Recorded Sex Assigned at Not on file Legal Sex Male 3:08 AM MANAGER LONG TERM CARE Gender Identity Not on file Sexual Orientation Not on file documented as of this encounter Plan of Treatment Upcoming Encounters Date Type Department Care Team (Late st Contact Info) Description 04/14/2025 10:30 AM MANAGER LONG TERM CARE [facility] Heart [facility] Vascular - [facility] [address] [facility] [address] [place] [address] Allan Heard MD [address] [facility] [address] [place] [address] documented as of this encounter [...] documented as of this encounter Care Teams Corsets Salesperson Relationship Specialty Start Date End Date Ricco Teran MD PCP - General Internal Medicine 12/08/18 documented as of this encounter
--- OUTSIDE RECORDS SUMMARY | 2025-02-07 03:44 | XMS_ITS | Encounter Summary ---
Author Organization [facility] Address [address] [place] [address] Care Team Providers Care Chute Puller Name Role Phone Ricco Teran MD Primary Care Provider [phone] Encounter Details Date Type Department Care Team (Late st Contact Info) Description 07/15/2001 Outpatient Historical [facility] Internal Medicine Medical [place] A [facility] [address] [facility] [address] [address] Guillaume Villarreal MD NO ADDRESS ON FILE Social History Tobacco Use Types Packs/Day Years Used Date Smoking Tobacco: Never Assessed Sex and Gender Information Value Date Recorded Sex Assigned at Not on file Legal Sex Male 3:08 AM MMD UNIT TEACHER Gender Identity Not on file Sexual Orientation Not on file documented as of this encounter Plan of Treatment Upcoming Encounters Date Type Department Care Team (Late st Contact Info) Description 04/14/2025 10:30 AM MMD UNIT TEACHER Office Visit [facility] Heart and Vascular - [facility] [address] [place] [address] Allan Heard MD [address] [facility] [address] [place] [address] documented as of this encounter [...] documented as of this encounter Care Teams Chute Puller Relationship Specialty Start Date End Date Ricco Teran MD PCP - General Internal Medicine 12/08/18 documented as of this encounter
--- OUTSIDE RECORDS SUMMARY | 2025-02-07 03:44 | XMS_ITS | Encounter Summary ---
Author Organization [facility] Address [address] [place] [address] Care Team Providers Care Glass Glazier Name Role Phone Ricco Teran MD Primary Care Provider [phone] Encounter Details Date Type Department Care Team (Late st Contact Info) Description 11/01/2006 Orders Only [facility] Internal Medicine Medical [place] A [facility] [address] [facility] [address] [place] [address] Patric Chavarria MD [facility] [address] [place] [address] Social History Tobacco Use Types Packs/Day Years Used Date Smoking Tobacco: Never Assessed Sex and Gender Information Value Date Recorded Sex Assigned at Not on file Legal Sex Male 3:08 AM LINUX ADMIN Gender Identity Not on file Sexual Orientation [...] called. CURRENT ALLERGY LIST: [facility] NUMBER: [phone] SECTION 1: REQUESTED ACTION lori 11/01/06 at 03:12 pm: MEDICATION REQUEST: MEDICATIONS: [...] st Contact Info) Description 04/14/2025 10:30 AM LINUX ADMIN Office Visit [facility] Heart and Vascular - [facility] [address] [place] [address] [place] [address] lAlan Heard MD [address] [facility] [address] [place] [address] documented as of this encounter [...] documented as of this encounter Care Teams Glass Glazier Relationship Specialty Start Date End Date Ricco Teran MD PCP - General Internal Medicine 12/08/18 documented as of this encounter
--- OUTSIDE RECORDS SUMMARY | 2025-02-07 03:44 | XMS_ITS | Clinical Summary ---
Author Organization [facility] Address [address] [place] [address] Care Team Providers Care Stone Crusher Operator Name Role Phone Unavailable Primary Care Provider Unavailabl e Source Comments [facility],non-owned Affiliates and Associated Physician Practices is amultiple site organization consisting of ambulatory clinics and hospital sitesin [place], [place], [place] and [place]. This disclosure is being madepursuant to the Care Everywhere program and may not contain all information available regarding this patient. Last updated 18.[employer] Allergies No known active allergies Medications * [...] on file Legal Sex Male 5:00 AM YARD CLEANER Gender Identity Not on file Sexual Orientation [...] 11:20 PM CDT Height 170.2 cm (5' 7) 12/12/2019 11:20 PM CDT Body Mass Index [...] 2015 ZOSTER VACCINE (1 of 2) 2015 DEPRESSION SCREENING 04/15/2024 COVID-19 VACCINE (2023-2 5 season) 2024 INFLUENZA VACCINE (#1) 2024 04/27/2008 HIB VACCINE Aged Out No longer eligi [...]
--- OUTSIDE RECORDS SUMMARY | 2025-02-07 03:44 | XMS_ITS | Encounter Summary ---
Author Organization [facility] Address [address] [place] [address] Care Team Providers Care Locomotive Firer Name Role Phone Ricco Teran MD Primary Care Provider [phone] Encounter Details Date Type Department Care Team (Latest Contact Info) Description 02/29/2004 Inpatient Historical [facility] PATIENT IN A BED Luci Hollingsworth MD [address] [place] [address] Annie Horvath MD [address] [facility] [address] [place] [address] DEPRESS PSYCHOSIS-UNSPEC (Primary Dx) Social History Tobacco Use Types Packs/Day Years Used Date Smoking Tobacco: Never Assessed Sex and Gender Information Value Date Recorded Sex Assigned at Not on file Legal Sex Male 3:08 AM FINISHING SUPERVISOR PLASTIC SHEETS Gender Identity Not on file Sexual Orientation Not on file documented as of this encounter Plan of Treatment Upcoming Encounters Date Type Department Care Team (Late st Contact Info) Description 04/14/2025 10:30 AM FINISHING SUPERVISOR PLASTIC SHEETS Office Visit [facility] Heart and Vascular - [facility] [address] [place] [address] Allan Heard MD [address] [address] [place] [address] documented as of this encounter [...] documented as of this encounter Care Teams Locomotive Firer Relationship Specialty Start Date End Date Ricco Teran MD PCP - General Internal Medicine 12/08/18 documented as of this encounter
--- OUTSIDE RECORDS SUMMARY | 2025-02-07 03:44 | XMS_ITS | Encounter Summary ---
Author Organization [facility] Address [address] [place] [address] Care Team Providers Care Sampler And Test Preparer Name Role Phone Ricco Teran MD Primary Care Provider [phone] Encounter Details Date Type Department Care Team (Late st Contact Info) Description 10/01/2003 Outpatient Historical [facility] Internal Medicine Medical [place] [facility] [address] [facility] [address] [address] Patric Chavarria MD [address] [facility] [address] [address] Social History Tobacco Use Types Packs/Day Years Used Date Smoking Tobacco: Never Assessed Sex and Gender Information Value Date Recorded Sex Assigned at Not on file Legal Sex Male 3:08 AM INDUSTRIAL COFFEE GRINDER Gender Identity Not on file Sexual Orientation Not on file documented as of this encounter Plan of Treatment Upcoming Encounters Date Type Department Care Team (Late st Contact Info) Description 04/14/2025 10:30 AM INDUSTRIAL COFFEE GRINDER Office Visit [facility] Heart and Vascular - [facility] [address] [facility] [address] [place] [address] Allan Heard MD [address] [facility] [address] [place] [address] documented as of this encounter [...] documented as of this encounter Care Teams Sampler And Test Preparer Relationship Specialty Start Date End Date Ricco Teran MD PCP - General Internal Medicine 12/08/18 documented as of this encounter
--- OUTSIDE RECORDS SUMMARY | 2025-02-07 03:44 | XMS_ITS | Encounter Summary ---
Author Organization [facility] Address [address] [place] [address] Care Team Providers Care Cyber Software Engineer Name Role Phone Ricco Teran MD Primary Care Provider [phone] Encounter Details Date Type Department Care Team (Latest Contact Info) Description 11/28/2000 Outpatient Historical [facility] JOSE RAFAEL Chavarria, Patric Moran MD [address] [facility] [address] [address] Abdominal pain, unspecified site (Primary Dx) Social History Tobacco Use Types Packs/Day Years Used Date Smoking Tobacco: Never Assessed Sex and Gender Information Value Date Recorded Sex Assigned at Not on file Legal Sex Male 3:08 AM ADVERTISING SPACE CLERK Gender Identity Not on file Sexual Orientation Not on file documented as of this encounter Plan of Treatment Upcoming Encounters Date Type Department Care Team (Late st Contact Info) Description 04/14/2025 10:30 AM ADVERTISING SPACE CLERK Office Visit [facility] Heart and Vascular - [facility] [address] [facility] [address] [place] [address] Alaln Heard MD [address] [facility] [address] [place] [address] documented as of this encounter [...] documented as of this encounter Care Teams Cyber Software Engineer Relationship Specialty Start Date End Date Ricco Teran MD PCP - General Internal Medicine 12/08/18 documented as of this encounter
--- OUTSIDE RECORDS SUMMARY | 2025-02-07 03:44 | XMS_ITS | Encounter Summary ---
Author Organization [facility] Address [address] [place] [address] Care Team Providers Care Edge Worker Name Role Phone Ricco Teran MD Primary Care Provider [phone] Encounter Details Date Type Department Care Team (Late st Contact Info) Description 06/28/2005 Outpatient Historical [facility] Internal Medicine Medical [place] [address] [place] [address] Patric Chavarria MD [address] [place] [address] [address] [place] [address] Social History Tobacco Use Types Packs/Day Years Used Date Smoking Tobacco: Never Assessed Sex and Gender Information Value Date Recorded Sex Assigned at Not on file Legal Sex Male 3:08 AM CUTTER GAS Gender Identity Not on file Sexual Orientation Not on file documented as of this encounter Last Filed Vital Signs Vital Sign Reading Time Taken Comments Blood Pressure 120/70 06/28/2005 1:45 PM CUTTER GAS Pulse 76 06/28/2005 1:45 PM CUTTER GAS Temperature 36.7 C (98 F) 06/28/2005 1:45 PM CUTTER GAS Respiratory Rate - - Oxygen Saturation - - Inhaled Oxygen Concentration - - Weight 787.9 kg (1737 lb) 06/28/2005 1:45 PM CUTTER GAS Height - - Body Mass Index 272.05 06/19/2004 9:15 AM CUTTER GAS documented in this encounter Plan of Treatment Upcoming Encounters Date Type Department Care Team (Late st Contact Info) Description 04/14/2025 10:30 AM CUTTER GAS Office Visit [facility] Heart and Vascular - [facility] [address] [facility] [address] [place] [address] Allan Heard MD [address] [facility] [address] [place] [address] documented as of this encounter Visit Diagnoses [...] documented as of this encounter Care Teams Edge Worker Relationship Specialty Start Date End Date Ricco Teran MD PCP - General Internal Medicine 12/08/18 documented as of this encounter
--- OUTSIDE RECORDS SUMMARY | 2025-02-07 03:44 | XMS_ITS | Encounter Summary ---
Author Organization [facility] Address [address] [place] [address] Care Team Providers Care Mill Beam Fitter Name Role Phone Ricco Teran MD Primary Care Provider [phone] Encounter Details Date Type Department Care Team (Late st Contact Info) Description 11/28/2000 Outpatient Historical [facility] Internal Medicine Medical [place] A [facility] [address] [facility] [address] [address] Patric Chavarria MD [address] [facility] [address] [address] Social History Tobacco Use Types Packs/Day Years Used Date Smoking Tobacco: Never Assessed Sex and Gender Information Value Date Recorded Sex Assigned at Not on file Legal Sex Male 3:08 AM IN HOME AIDE Gender Identity Not on file Sexual Orientation Not on file documented as of this encounter Plan of Treatment Upcoming Encounters Date Type Department Care Team (Late st Contact Info) Description 04/14/2025 10:30 AM IN HOME AIDE Office Visit [facility] Heart and Vascular - [facility] [address] [facility] [address] [place] [address] Allan Heard MD [address] [facility] [address] [place] [address] documented as of this encounter [...] documented as of this encounter Care Teams Mill Beam Fitter Relationship Specialty Start Date End Date Ricco Teran MD PCP - General Internal Medicine 12/08/18 documented as of this encounter
--- OUTSIDE RECORDS SUMMARY | 2025-02-07 03:44 | XMS_ITS | Encounter Summary ---
Author Organization [facility] Address [address] [place] [address] Care Team Providers Care Wafer Fabricator Name Role Phone iRcco Teran MD Primary Care Provider [phone] Reason for Visit * Reason Onset Date Comments prior authorization- medication 02/20/2023 Encounter Details Date Type Department Care Team (Late st Contact Info) Description 02/20/2023 Telephone [facility] Primary Care [address] [place] [address] [place] [address] [address] prior authorization- medication Social History [...] on file Legal Sex Male 3:08 AM COMMERCIAL ATTACHE Gender Identity Not on file Sexual Orientation Not on file Occupation Industry Job Start Date Job End Date Not on file Not on file Not on file Not on file documented as of this encounter Miscellaneous Notes * Telephone Encounter - Diana, An Denson - 02/20/2023 11:15 AM CST Provider: Ricco Teran MD Next office visit: Visit date not found Caller: Gisell ([facility]) Message: Patients medication for VIAGRA is needing a pa however the pharmacy sent to patients photo mask cleaner doctor by mistake. Please advise to pharmacy as the request must be process with patient primary physician. Call-back Number: [phone] The patient's preferred pharmacy is [id number] - [place], [place] - [phone] ERCIAL ATTACHE documented in this encounter Plan of Treatment Upcoming Encounters Date Type Department Care Team (Late st Contact Info) Description 04/14/2025 10:30 AM COMMERCIAL ATTACHE Office Visit [facility] Heart and Vascular - [facility] [address] [place] [address] [place] [address] Allan Heard MD [address] [address] documented as of this encounter Visit Diagnoses Not on filedocumented in this encounter Additional Health Concerns Infection Onset Date Last Indicated Resolved Time R/O COVID-19 01/12/2024 01/12/2024 01/12/2024 12:2 1 PM CDT MRSA Comment:01/12/24 blood 01/12/2024 01/12/2024 02/11/2024 1:16 AM CDT documented as of this encounter Care Teams Wafer Fabricator Relationship Specialty Start Date End Date Ricco Teran MD PCP - General Internal Medicine 12/08/18 documented as of this encounter
--- OUTSIDE RECORDS SUMMARY | 2025-02-07 03:44 | XMS_ITS | Encounter Summary ---
Author Organization [facility] Address [address] [place] [address] Care Team Providers Care Hot Packer Name Role Phone Ricco Teran MD Primary Care Provider [phone] Encounter Details Date Type Department Care Team (Late st Contact Info) Description 06/19/2004 Outpatient Historical [facility] Internal Medicine Medical [place] A [facility] [address] [facility] [address] [address] Anjelica Schaeffer MD Social History Tobacco Use Types Packs/Day Years Used Date Smoking Tobacco: Never Assessed Sex and Gender Information Value Date Recorded Sex Assigned at Not on file Legal Sex Male 3:08 AM LAMP STACK DEVELOPER Gender Identity Not on file Sexual Orientation Not on file documented as of this encounter Last Filed Vital Signs Vital Sign Reading Time Taken Comments Blood Pressure 140/86 06/19/2004 9:15 AM LAMP STACK DEVELOPER Pulse 104 06/19/2004 9:15 AM LAMP STACK DEVELOPER Temperature 37.1 C (98.8 F) 06/19/2004 9:15 AM LAMP STACK DEVELOPER Respiratory Rate 20 06/19/2004 9:15 AM LAMP STACK DEVELOPER Oxygen Saturation - - Inhaled Oxygen Concentration - - Weight 73.5 kg (162 lb) 06/19/2004 9:15 AM LAMP STACK DEVELOPER Height 170.2 cm (5' 7) 06/19/2004 9:15 AM LAMP STACK DEVELOPER Body Mass Index 25.37 06/19/2004 9:15 AM LAMP STACK DEVELOPER documented in this encounter Plan of Treatment Upcoming Encounters Date Type Department Care Team (Late st Contact Info) Description 04/14/2025 10:30 AM LAMP STACK DEVELOPER Office Visit [facility] Heart and Vascular - [facility] [address] [place] [address] Allan Heard MD [address] [facility] 2014 [place] [address] documented as of this encounter Visit Diagnoses [...] documented as of this encounter Care Teams Hot Packer Relationship Specialty Start Date End Date Ricco Teran MD PCP - General Internal Medicine 12/08/18 documented as of this encounter
--- OUTSIDE RECORDS SUMMARY | 2025-02-07 03:45 | XMS_ITS | Encounter Summary ---
Author Organization [facility] Address [address] [place] [address] Care Team Providers Care Souvenir Assembler Name Role Phone Ricco Teran MD Primary Care Provider [phone] Reason for Visit * Reason Comments Medication Assistance Encounter Details Date Type Department Care Team (Late st Contact Info) Description 08/08/2023 Telephone [facility] Primary Care [address] [place] [address] [place] [address] [address] Medication Assistance Social History Tobacco [...] on file Legal Sex Male 3:08 AM CHEMIST BIOLOGICAL Gender Identity Not on file Sexual Orientation Not on file Occupation Industry Job Start Date Job End Date Not on file Not on file Not on file Not on file documented as of this encounter Miscellaneous Notes * Telephone Encounter - Tiffanie Garvey - 08/08/2023 2:31 PM CDT Copied from [facility] #[id number]. Topic: Medication Request >> Aug 08, 2023 2:30 PM Tiffanie Hall wrote: Caller is requesting: Medication - New Request (Not Currently Taking) Medication (Ask patient/caregiver to spell if possible): something for lice Preferred Pharmacy: [id number] [phone] [address] Patient/Caregiver Callback Number: [phone] (home) Call Notes: Patient had head lice documented in this encounter Plan of Treatment Upcoming Encounters Date Type Department Care Team (Late st Contact Info) Description 04/14/2025 10:30 AM CHEMIST BIOLOGICAL Office Visit [facility] Heart and Vascular - [facility] [address] [place] [address] [address] [place] [address] Allan Heard MD [address] [facility] [address] [place] [address] documented as of this encounter Visit Diagnoses Not on filedocumented in this encounter Additional Health Concerns Infection Onset Date Last Indicated Resolved Time R/O COVID-19 01/12/2024 01/12/2024 01/12/2024 12:2 1 PM CDT MRSA Comment:01/12/24 blood 01/12/2024 01/12/2024 02/11/2024 1:16 AM CDT Assessment Noted Time PHQ-9 Depression Total Score: 2 02/22/20 23 3:02 PM CHEMIST BIOLOGICAL documented as of this encounter Care Teams Souvenir Assembler Relationship Specialty Start Date End Date Ricco Teran MD PCP - General Internal Medicine 12/08/18 documented as of this encounter
--- OUTSIDE RECORDS SUMMARY | 2025-02-07 03:45 | XMS_ITS | Clinical Summary ---
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 20 tablet 4 Active predniSONE (DELTASONE) 20 mg tablet Take 1 tablet (20 mg) by mouth 2 (two) times a day Take with food 10 tablet 5 Active cetirizine (ZyrTEC) 10 mg tablet Take 1 tablet (10 mg total) by mouth daily for 15 days 15 tablet 5 Active famotidine (PEPCID) 20 mg tablet Take 1 tablet (20 mg total) by mouth 2 (two) times a day 30 tablet 5 026 Active diphenhydrAMINE 25 mg capsule Take 1 tablet/capsule (25 mg total) by mouth every 6 (six) hours as needed for itching 20 capsule 5 Active bismuth subsalicylate (PEPTO-BISMOL) suspension Take 15 mL by mouth every 6 (six) hours as needed for indigestion 360 mL 5 Active Active Problems Problem Noted Date Diagnosed Date Cellulitis of right knee 12/22/2022 Contusion of face 11/01/2021 Upper respiratory tract infection 11/03/2020 Cellulitis of right elbow 11/03/2020 Tonsillitis 11/03/2020 Closed fracture of nasal bones 03/16/2019 Overview (03/16/2019): Added automatically from request for surgery [id number] Encounters Date Type Department Care Team Description 11/30/2024 3:55 AM CDT - 11/30/2024 5:52 AM CDT Emergency [facility] Emergency Department [address] [place] [id number] Tess Thornton MD Abdominal pain (Primary Dx); Itching; Bug bite, initial encounter Discharge Disposition: Discharge to home or self care from Last 3 Months Immunizations Immunization Administration Dates Next Due Pfizer SARS-CoV-2 Monovalent Vaccination (12+ Yrs) PURPLE 08/18/2020,07/28/2020 Tdap 01/31/2023 Surgical History Surgery Date Site/Laterality Comments OTHER SURGICAL HISTORY 04/15/2008 - 04/14/2009 LIH repair w/ mesh 04/23 HERNIA REPAIR COLONOSCOPY Medical History Medical History Date Comments Hypertension Adhd Social History Tobacco Use Types Packs/Day Years Used Date Smoking Tobacco: Former Cigarettes Q uit: 2018 Cigars Smokeless Tobacco: Never Tobacco Cessation:Counseling Given: Not Answered Alcohol Use Standard Drinks/Week Comments Yes 6 (1 standard drink = 0.6 oz pur e alcohol) beer every 2-3 days Personal Safety Answer Date Recorded Have you ever been in or are you currently in a harmful physical or emotional relationship or is someone making you feel afraid or unsafe? 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 Gender Identity Not on file Sexual Orientation Not on file Obstetrics History Last Filed Vital Signs Vital Sign Reading Time Taken Comments Blood Pressure 157/94 11/30/2024 3:52 AM CDT Pulse 70 11/30/2024 3:52 AM CDT Temperature 37 C (98.6 F) 11/30/2024 3:52 AM CDT Respiratory Rate 18 11/30/2024 3:52 AM CDT Oxygen Saturation 98% 11/30/2024 3:52 AM CDT Inhaled Oxygen Concentration - - Weight 79.4 kg (175 lb) 11/30/2024 3:52 AM CDT Height 170.2 cm (5' 7) 09/25/2024 5:57 AM CDT Body Mass Index 27.41 09/25/2024 5:57 AM CDT Plan of Treatment Health Maintenance Due Date Last Done Comments Colon Cancer Screening-Colonoscopy 1965 Depression Screening 1965 Hepatitis C Screening 1965 Prostate Cancer Screening-PSA 1965 Hepatitis B Screening 1983 Regular Well Visit/Exam 18-64 1983 Zoster Vaccine (1 of 2) 2015 Covid-19 Vaccine (3 - 2024-2 6 season) 2024 08/18/2020, 07/28/2020 Influenza Vaccine (#1) 2024 , 04/27/2008 DTaP/Tdap/Td Vaccine (4 - Td or Tdap) 01/31/2033 01/31/2023, 06/15/2014, 12/12/2009 Pneumococcal vaccine <65 Aged Out 04/27/2008 No longer eligible based on patient's age to complete this topic Procedures Procedure Name Priority Date/Time Associated Diagnosis Comments EGFR STAT 11/30/2024 4:47 AM CDT DIFFERENTIAL AUTO STAT 11/30/2024 4:4 7 AM CDT LIPASE STAT 11/30/2024 4:47 AM CDT COMPREHENSIVE METABOLIC PANEL STAT 11/30/2024 4:47 AM CDT CBC WITH AUTO DIFFERENTIAL STAT 11/30/2024 4:47 AM CDT INFLUENZA A/B, RSV, AND COVID-19 PCR STAT 11/30/2024 4:47 AM CDT from Last 3 Months Results * Influenza A/B, RSV, and COVID-19 PCR Nasopharyngeal (11/30/2024 4:47 AM CDT) COVID-19 RNA Negative Negative Comment:Testing performed by : [facility], [place] [address] Influenza A RNA Negative Negative [facility] Comment:Testing performed by : [facility], [place] [address] Influenza B RNA Negative Negative [facility] Comment:Testing performed by : [facility], [address] [place] [address] RSV RNA Negative Negative [facility] Comment: Interpretive data: Testing performed by [facility]. This test is performed using the [employer] Xpert Xpress CoV-2/Flu/RSV plus assay. This is a multiplex, real- time reverse transcriptase PCR assay intended for the qualitative detection of nucleic acid from SARS-CoV-2, influenza A, influenza B, and respiratory syncytial virus. This assay has been cleared by the [place] Food and Drug administration. The performance characteristics have been verified by the [facility]. Results must be considered in the clinical context, and a negative result does not rule out infection. Interpretive Data last revised 2023 Testing performed by: [facility], [place] [address] Nasopharyngeal 11/30/2024 4: 47 AM CDT 11/30/2024 4:52 AM CDT Narrative [facility] SU - 11/30/2024 5:30 AM CDT Is the Patient experiencing symptoms consistent with COVID?->Yes Tess Thornton MD LAB MICROBIOLOGY - GENERAL ORDERABLES Final Result Performing Organization Address [facility] [place] [address] [address] Mcnally Department [employer] [place] [address] * (ABNORMAL) eGFR (11/30/2024 4:47 AM CDT) eGFR 52(L) >=60 mL/min/1. 73 m2 Comment: Interpretive Data Reference Interval Normal >/= 90 mL/min/1.73m2 Mildly decreased* 60 - 89 mL/min/1.73m2 Mildly to moderately decreased 45 - 59 mL/min/1.73m2 Moderately to severely decreased 30 - 44 mL/min/1.73m2 Severely decreased 15 - 29 mL/min/1.73m2 Kidney Failure < 15 mL/min/1.73m2 *Relative to young adult level Estimated glomerular filtration rate is determined by the 2020 CKD-EPI equation recommended by the National Kidney Foundation (A Unifying Approach to GFR Estimation: Recommendations of the NKF-ASK Task Force on Reassessing the Inclusion of Race in Diagnosing Kidney Disease, JASN 2020). The CKD-EPI equation should not be used for patients with unstable renal function and has not been validated in children and those over 70. Current interpretive data was last reviewed 2021. Testing performed by: [facility], [address] [place] [address], [place] [address] Blood 11/30/2024 4:47 AM CDT 11/30/2024 4:52 AM CDT Tess Thornton MD LAB BLOOD ORDERABLE S Final Result Performing Organization Address City/[facility]/[place] [address] Charlie Mcnally Department of [employer] [place], [place] [id number] * (ABNORMAL) Differential, auto (11/30/2024 4:47 AM CDT) Neutrophil abs 7.26(H) 1.50 - 6.50 K/cumm Comment:Testing performed by : [facility], [facility], [place] [address] Imm gran abs 0.08 0.00 - 0.10 K/cumm [facility] Comment:Testing performed by : [facility], [facility] [address], [place] [address] Lymphocyte abs 1.85 0.80 - 3.30 K/cumm [facility] Comment:Testing performed by : [facility], [facility] [address], [place] [address] Monocyte abs 1.07(H) 0.20 - 0.80 K/cumm [facility] Comment:Testing performed by : [place] [address], [place] [address] Eosinophil abs 0.12 0.00 - 0.50 K/cumm [facility] Comment:Testing performed by : [place] [address], [place] [address] Basophil abs 0.08 0.00 - 0.10 K/cumm [facility] Comment:Testing performed by : [facility], [facility] [address], [place] [address] Neutrophil pct 69.4 % [facility] Comment: Interpretive Data Percent cell count reference ranges are not reported, since discordance with absolute values may lead to misinterpretation of CBC data. Current Interpretive Data was last revised on 2017. Testing performed by: [facility], [facility], [place] [address] Imm gran pct 0.8 % [facility] Comment: Interpretive Data Percent cell count reference ranges are not reported, since discordance with absolute values may lead to misinterpretation of CBC data. Current Interpretive Data was last revised on 2017. Testing performed by: [place] [address], [place] [address] Lymphocyte pct 17.7 % [facility] Comment: Interpretive Data Percent cell count reference ranges are not reported, since discordance with absolute values may lead to misinterpretation of CBC data. Current Interpretive Data was last revised on 2017. Testing performed by: [facility], [facility], [place] [address] Monocyte pct 10.2 % [facility] Comment: Interpretive Data Percent cell count reference ranges are not reported, since discordance with absolute values may lead to misinterpretation of CBC data. Current Interpretive Data was last revised on 2017. [facility] [address], [place] [address] Eosinophil pct 1.1 % [facility] Comment: Interpretive Data Percent cell count reference ranges are not reported, since discordance with absolute values may lead to misinterpretation of CBC data. Current Interpretive Data was last revised on 2017. [facility] performed [facility]: [facility] [address], [place] [address] Basophil pct 0.8 % [facility] Comment: Interpretive Data Percent cell count reference ranges are not reported, since discordance with absolute values may lead to misinterpretation of CBC data. Current Interpretive Data was last revised on 2017. Testing performed [facility] [address], [place] [address] Blood 11/30/2024 4:47 AM CDT 11/30/2024 4:52 AM CDT us Tess Thornton MD LAB BLOOD ORDERABLE S Final Result [facility] [address] [address]ally Department [place] [address] * (ABNORMAL) CBC with auto differential (11/30/2024 4:47 AM CDT) WBC 10.46(H) 3.80 - 9.90 K/cumm Comment:[facility] [address], [place] [address] Hgb 15.2 13.0 - 17.5 g/dL [facility] Comment:Testing performed [facility] : [facility] [address], [place] [address] Hct 44.3 38.9 - 50.3 % [facility] Comment:Testing performed by : [facility] [address], [place] [address] Plt 174 150 - 400 K/cumm [facility] Comment:Testing performed by : [facility] [address], [place] [address] MPV 9.4 9.1 - 12.3 fL [facility] Comment:Testing performed by : [facility], [facility] [place] [address] RBC 4.75 4.30 - 5.80 M/cumm [facility] Comment:Testing performed by : [facility] [address] [place] [address] MCV 93.3 81.3 - 96.4 fL [facility] Comment:Testing performed by : [facility] [address] [place] [address] MCH 32.0 27.1 - 33.3 pg [facility] Comment:Testing performed by : [facility] [address] [place], [place] [address] MCHC 34.3 32.3 - 35.7 g/dL [facility] Comment:Testing performed by : [facility] [address] [place], [place] [address] RDW CV 12.3 11.1 - 14.9 % [facility] Comment:Testing performed by : [facility] [address] [place], [place] [address] RDW SD 42.4 35.7 - 48.1 fL [facility] Comment:Testing performed by : [facility] [place] [address] NRBC abs 0.00 0.00 - 0.01 K/cumm [facility] Comment:Testing performed by : [facility] [place] [address] Blood 11/30/2024 4:47 AM CDT 11/30/2024 4:52 AM CDT Tess Thornton MD LAB BLOOD ORDERABLE S Final Result NAVEED [phone] [address] Mcnally Department [place] [address] * Lipase (11/30/2024 4:47 AM CDT) Lipase 40 10 - 99 Units/L Comment: Hemolyzed sample, result may be falsely decreased Testing performed by: [facility] [place] [address] Blood 11/30/2024 4:47 AM CDT 11/30/2024 4:52 AM CDT us Tess Thornton MD LAB BLOOD ORDERABLE S Final Result [facility] [address] Charlie Mcnally Department [place] [address] * (ABNORMAL) Comprehensive metabolic panel (11/30/2024 4:47 AM CDT) Sodium 135 135 - 145 mmol/L Comment:[facility] performed [facility] [address], [place] [address] Potassium, pl 4.7 3.3 - 4.9 mmol/L [facility] Comment: Hemolysis present. Results may be affected. Testing performed [facility]: [facility] [address], [place] [address] Chloride 101 97 - 110 mmol/L [facility] Comment:Testing performed by : [facility] [address], [place] [address] CO2 21(L) 22 - 32 mmol/L [facility] Comment:Testing performed by : [facility] [address], [place] [address] Anion gap 13 2 - 15 mmol/L [facility] Comment:Testing performed by : [facility] [address] [place] [address] BUN 19 6 - 25 mg/dL [facility] Comment:Testing performed by : [facility] [address], [place] [address] Creatinine 1.54(H) 0.80 - 1.30 mg/dL [facility] Comment:Testing performed by : [facility] [address] [place] [address] Glucose 109 70 - 199 mg/dL [facility] Comment: Interpretive Data Fasting glucose >/= 126 mg/dl is diagnostic for diabetes. Fasting is defined as no caloric intake for at least 8 hours. Fasting glucose between 100 mg/dl to 125 mg/dl is diagnostic of prediabetes. In a patient with classic symptoms of hyperglycemia or hyperglycemic crisis, a random glucose >/= 200 mg/dl is diagnostic for diabetes. In the absence of unequivocal hyperglycemia, results should be confirmed by repeat testing. The classification and Diagnosis of Diabetes Diabetes Care 2021; 46: S19-S40. Current interpretive data was last revised 2022. Testing performed by: [facility] [place] [address] Calcium 9.6 8.5 - 10.3 mg/dL [facility] Comment:Testing performed by : [facility] [address], [place] [address] Bilirubin, total 0.5 0.1 - 1.2 mg/dL [facility] Comment:Testing performed by : [facility] [address], [place] [address] Protein, pl 7.4 6.5 - 8.5 g/dL [facility] Comment:Testing performed by : [facility] [place] [address] Albumin 4.0 3.5 - 5.0 g/dL [facility] Comment:Testing performed by : [facility] [address], [place] [address] Alk phos 102 40 - 130 Units/L [facility] Comment:Testing performed by : [facility] [address], [place] [address] ALT 46 7 - 55 Units/L [facility] Comment:Testing performed by : [facility] [place] [address] AST 41 10 - 50 Units/L [facility] Comment: Hemolysis present. Results may be affected. Testing performed by: [facility] [place] [address] Blood 11/30/2024 4:47 AM CDT 11/30/2024 4:52 AM CDT Tess Thornton MD LAB BLOOD ORDERABLE S Final Result [facility] [place] [address] Charlie Mcnally Department [place] [address] from Last 3 Months Insurance [facility] Care Teams Cigarette Lighter Repairer Relationship Specialty Start Date End Date Ricco Teran MD PCP - General Internal Medicine 03/25/19
--- OUTSIDE RECORDS SUMMARY | 2025-02-07 03:45 | XMS_ITS | Clinical Summary ---
Author Organization [facility] Address [address] [place] [address] Phone Care Team Providers Care Pattern Drafter Name Role Phone Ricco Teran MD Primary Care Provider [phone] Allergies No known active allergies Medications acetaminophen [...] Amount: 6 tablets 30 Tablet 3 Active naloxone (NARCAN) 4 mg/spray [place], Non-Aerosol EMERGENCY USE ONLY: Administer 1 spray (4 mg) in one nostril one time. May repeat in alternating nostrils every 2-3 min until responsive or EMS arrives. 2 Each 3 4 Active methocarbamoL (ROBAXIN) 500 mg tablet TAKE 1 TABLET (500 MG) BY MOUTH 4 TIMES DAILY. 90 Tablet 4 Active nitroglycerin (NITROSTAT) 0.4 mg Tablet, Sublingual Place 1 Tablet (0.4 mg) under tongue every 5 minutes as needed for Chest Pain. 25 Tablet 3 5 Active spironolactone (ALDACTONE) 25 mg tablet Take 1 Tablet (25 mg) by mouth daily. 90 Tablet 3 5 Active metoprolol succinate (TOPROL XL) 50 mg Extended Release 24 hour tablet Take 1 Tablet (50 mg) by mouth daily. 90 Tablet 2 5 Active losartan (COZAAR) 25 mg tablet Take 1 Tablet (25 mg) by mouth daily. 90 Tablet 3 5 Active ezetimibe (ZETIA) 10 mg tablet Starting 01/10: Take 1 Tablet (10 mg) by mouth daily. 90 Tablet 3 5 Active empagliflozin (Jardiance) 10 mg tablet Take 1 Tablet (10 mg) by mouth daily in the morning. 90 Tablet 3 5 Active clopidogreL (PLAVIX) 75 mg Tablet Take 1 Tablet (75 mg) by mouth daily. 100 Tablet 3 5 Active atorvastatin (LIPITOR) 40 mg tablet Take 1 Tablet (40 mg) by mouth daily at bedtime. 90 Tablet 3 5 Active aspirin (ECOTRIN EC) 81 mg Tablet, Delayed Release (E.C.) Take 1 Tablet (81 mg) by mouth daily. 90 Tablet 3 5 Active sildenafiL (VIAGRA) 100 mg tabletIndicatio ns:Erectile dysfunction, unspecified erectile dysfunction type Take 1 Tablet (100 mg) by mouth 1 time daily as needed for Erectile Dysfunction. Do NOT take within 24 hours of taking nitroglycerin 15 Tablet 2 5 Active Active Problems Patient Care Coordination No te Formatting of this note migh t be different from the original. Dr Heard Lead Ruby On Rails Developer AWV 12/18/2018, 12/22/19, 05/03/2022, 01/27/2024 Problem Noted Date Diagnosed Date Coronary artery disease invo lving [place] coronary artery of [place] heart without angina pectoris 09/30/2024 Benign hypertension 09/30/2024 Mixed hyperlipidemia 09/30/2024 S/P coronary artery stent placement 09/30/2024 Ischemic cardiomyopathy 09/30/2024 Chronic HFrEF (heart failure with reduced ejection fraction) 09/30/2024 ICD (implantable cardioverter-defibrillator) in place 08/03/2024 Prediabetes 01/27/2024 MRSA bacteremia 01/13/2024 Septic thrombophlebitis 01/13/2024 Pneumonia of right upper lobe due to infectious organism 01/12/2024 Overview (03/16/2024): CT 04/07 Right upper lobe area of increased density now has more the appearance of atelectasis. Interval resolution of two opacities present adjacent to this. History of RI (myocardial infarction) 01/08/2024 Essential hypertension 05/01/2023 HFrEF (heart failure with reduced ejection fract ion) 01/25/2023 Overview (01/24/2024): Echo EF 30% 01/05 Echo EF 40% 04/06 Echo EF 45-50% 01/06 Echo EF 50% 02/05 Anginal equivalent 01/24/2023 Coronary artery disease of n ative artery of [place] heart with stable angina pectoris 01/04/2023 Overview [...] Hosp 09/26- for alcohol and meth use. [place] 600 mg HS Gabapentin 300 mg TID [...] Resolved Date Coronary artery disease invo lving [place] coronary artery of [place] heart without angina pectoris 05/05/2024 07/27/2024 Benign hypertension 05/05/2024 07/28/19 Mixed hyperlipidemia 05/05/2024 025 Cavitary lesion of [...] 01/08/2023 01/24/2024 Shortness of breath 01/08/2023 01/24/20 Edema of right lower extremity 01/05/2023 01/24/2024 [...] Unilateral inguinal hernia, right 06/14/2015 12/15/2018 Methotrexate, alf, current use 09/23/2013 09/23/2013 Methamphetamine addiction 09/23/2013 [...] Encounters Date Type Department Care Team Description 01/12/2025 External Device Data STL ABSTRACTION Provider, Abstract 12/30/2024 External Device Data STL ABSTRACTION Provider, Abstract 12/29/2024 External Device Data STL ABSTRACTION Provider, Abstract 12/02/2024 External Device Data STL ABSTRACTION Provider, Abstract 12/01/2024 Abstract [facility] Internal Medicine [address] [id number] Ricco Teran MD from Last 3 Months [...] on file Legal 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 Gender Identity Not on file Sexual Orientation Not on file Occupation Industry Job Start Date Job End Date Not on file Not on file Not on file Not on file Last Filed Vital Signs Vital Sign Reading Time Taken Comments Blood Pressure 116/74 09/30/2024 12:43 PM CDT Pulse 75 09/30/2024 12:43 PM CDT Temperature 36.8 C (98.2 F) 01/17/2024 6:07 AM CDT Respiratory Rate 16 01/27/2024 11:04 AM CDT Oxygen Saturation 96% 09/30/2024 12:43 PM CDT Inhaled Oxygen Concentration - - Weight 77.6 kg (171 lb) 09/30/2024 12:43 PM CDT Height 170.2 cm (5' 7) 09/30/2024 12:43 PM CDT Body Mass Index 26.78 09/30/2024 12:43 PM CDT Plan of Treatment Upcoming Encounters Date Type Department Care Team (Late st Contact Info) Description 04/14/2025 10:30 AM INSPECTOR BALANCE WHEEL MOTION Office Visit [facility] Heart and Vascular - [facility] [address] [facility] [address] [place] [address] Allan Heard MD [address] [facility] [address] [place] [address] Health Maintenance Due Date Last Done Comments HEPATITIS B VACCINES (1 of 3 - 19+ 3-dose series) 1984 FIT-DNA Q 3 years 2010 FIT/FOBT Q 1 year 2010 Flex Sig/CT Colonography Q 5 years 2010 ZOSTER VACCINE (1 of 2) 2015 INFLUENZA VACCINE (#1) 2024 04/21/2020, 2008 COVID-19 Vaccine (2024- season) 12/14/202409/2020, 07/28/2020 Pre-Diabetes and Diabetes Screening 01/07/202701/07, 01/04/2023 COLORECTAL SCREENING 02/10/2029 02/10/2019, 02/11/20 Colorectal [...] Heart Failure Problem No Zahira Wynne LPN Medical Devices Implanted Type Area Biomedical Repair Technician Device Identifier Shelf Expiration Date Model / Serial / Lot Mesh Parietex Progrip [id number] - [id number] Implanted:Qty: 1 on 04/25/2016 by Francisco Murrieta MD at [facility] Mesh Right: Inguinal COVIDIEN- [place] SURG [id number] 08/12/2020 [id number] / / [id number] Plate Lcp Adaption 2.4mm 247.366 - Sload 29 Sterilized Jan 31, 2023 Implanted:Qty: 1 on 02/05/2023 by Deep France MD at [facility] Plate Left: Elbow J&J- DEPUY SYNTHES 247.366 / LOAD 29 STERILIZED JAN 31, 2023 / Plate Olecranon Va-Lcp 02.107.304 - Sload 113 Sterilized Feb 02, 2023 Implanted:Qty: 1 on 02/05/2023 by Deep France MD at [facility] Plate Left: Elbow J&J- DEPUY SYNTHES 02.107.304S / LOAD 113 STERILIZED FEB 02, 2023 / Plate-Y Lcp 2.4mm 3hd Hole 249.669 - Sload 29 Sterilized Jan 31, 2023 Implanted:Qty: 1 on 02/05/2023 by Deep France MD at [facility] Plate Left: Elbow J&J- DEPU[employer] SY[employer]THES 249.669 / LOAD 29 STERILIZED JAN 31, 2023 / Screw Cortex Slftp T8 2.4x16mm 201.766 - Sload 29 Sterilized Jan 31, 2023 Implanted:Qty: 1 on 02/05/2023 by Deep France MD at [facility] Screw Left: Elbow J&J- DEPUY SYNTHES 201.766 / LOAD 29 STERILIZED JAN 31, 2023 / Screw St Va Loc 2.7x26mm 02.211.026 - Sload 15 Sterilized Feb 04, 2023 Implanted:Qty: 1 on 02/05/2023 by Deep France MD at [facility] Screw Left: Elbow J&J- DEPUY SY[employer]ES 02.211.026 / LOAD 15 STERILIZED FEB 04, 2023 / Screw St Va Loc 2.7x20mm 02.211.020 - Sload 15 Sterilized Feb 04, 2023 Implanted:Qty: 1 on 02/05/2023 by Deep France MD at [facility] Screw Left: Elbow J&J- DEPU[employer] SY[employer]ES 02.211.020 / LOAD 15 STERILIZED FEB 04, 2023 / Screw St Va Loc 2.7x34mm 02.211.034 - Sload 15 Sterilized Feb 04, 2023 Implanted:Qty: 1 on 02/05/2023 by Deep France MD at [facility] Screw Left: Elbow J&J- DEPU[employer] SY[employer]ES 02.211.034 / LOAD 15 STERILIZED FEB 04, 2023 / Screw St Va Loc 2.7x60mm 02.211.060 - Sload 15 Sterilized Feb 04, 2023 Implanted:Qty: 1 on 02/05/2023 by Deep France MD at [facility] Screw Left: Elbow J&J- DEPUY SY[employer]ES 02.211.060 / LOAD 15 STERILIZED FEB 04, 2023 / Screw St Va Loc 2.7x50mm 02.211.050 - Sload 15 Sterilized Feb 04, 2023 Implanted:Qty: 1 on 02/05/2023 by Deep France MD at [facility] Screw Left: Elbow J&J- DEPUY SY[employer]ES 02.211.050 / LOAD 15 STERILIZED FEB 04, 2023 / Screw St Va Loc 2.7x40mm 02.211.040 - Sload 15 Sterilized Feb 04, 2023 Implanted:Qty: 1 on 02/05/2023 by Deep France MD at [facility] Screw Left: Elbow J&J- DEPUY SY[employer]THES 02.211.040 / LOAD 15 STERILIZED FEB 04, 2023 / Screw Mtphysl St T8 2.7x22mm 02.118.522 - Sload 15 Sterilized Feb 04, 2023 Implanted:Qty: 1 on 02/05/2023 by Deep France MD at [facility] Screw Left: Elbow J&J- DEPUY SYNTHES 02.118.522 / LOAD 15 STERILIZED FEB 04, 2023 / Screw St Loc Stdrv 3.5x20mm 212.106 - Sload 15 Sterilized Feb 04, 2023 Implanted:Qty: 2 on 02/05/2023 by Deep France MD at [facility] Screw Left: Elbow J&J- DEPUY SYNTHES 212.106 / LOAD 15 STERILIZED FEB 04, 2023 / Screw St Loc Stdrv 3.5x18mm 212.105 - Sload 15 Sterilized Feb 04, 2023 Implanted:Qty: 1 on 02/05/2023 by Deep France MD at [facility] Screw Left: Elbow J&J- DEPUY SY[employer]ES 212.105 / LOAD 15 STERILIZED FEB 04, 2023 / Screw Cortex Slftp 3.5x26mm 204.826 - Sload 15 Sterilized Feb 04, 2023 Implanted:Qty: 1 on 02/05/2023 by Deep France MD at [facility] Screw Left: Elbow J&J- DEPUY SYNTHES 204.826 / LOAD 15 STERILIZED FEB 04, 2023 / 2.0 X 20mm Cchs Lt Implanted:Qty: 2 on 02/05/2023 by Deep France MD at [facility] Screw Left: Elbow PURE H20 [employer] [facility] 04.334.020 / / Description:[employer] COMP ONETS ON REQUISITION# [id number] Screw Cortex Slftp T8 2.4x26mm 201.776 - Sload 29 Sterilized Jan 31, 2023 Implanted:Qty: 2 on 02/05/2023 by Deep France MD at [facility] Screw Left: Elbow J&J- DEPUY SYNTHES 201.776 / LOAD 29 STERILIZED JAN 31, 2023 / Screw Cortex Slftp T8 2.4x10mm 201.760 - Sload 29 Sterilized Jan 31, 2023 Implanted:Qty: 4 on 02/05/2023 by Deep France MD at [facility] Screw Left: Elbow J&J- DEPUY SYNTHES 201.760 / LOAD 29 STERILIZED JAN 31, 2023 / Stent Synergy Xd 2.14k65vf Evrlms [place] [id number] - [id number] Implanted:Qty: 1 on 01/07/2023 at [facility] Stent Left: Coronary [employer] 12/18/2023 [id number] / / [id number] Stent Synergy Xd 3.0x24mm Evrlms [place] [id number] - [id number] Implanted:Qty: 1 on 01/25/2023 at [facility] Stent N/A: Coronary [employer] 10/19/2023 [id number] / / [id number] Stent Synergy Xd 2.63n49ew Evrlms [place] [id number] - [id number] Implanted:Qty: 1 on 01/09/2024 by Isha Parking Assistant () MD Julián at [facility] Stent N/A: Heart [employer] [id number] 10/01/2025 [id number] 70 / / [id number] Stent Synergy Xd 3.0x16mm Evrlms [place] [id number] - [id number] Implanted:Qty: 1 on 01/09/2024 by Isha Parking Assistant Bri) MD Julián at [facility] Stent N/A: Heart [employer] [id number] 07/01/2025 [id number] / / [id number] Radial Head W/ 022mm Hd, 06.5mm Stm, 10(+0)Mm Hd Ht, Ster Implanted:Qty: 1 on 02/05/2023 by Deep France MD at [facility] Left: Elbow [employer] 01/12/2027 09.405.260S / / [id number] Explanted Type Area Biomedical Repair Technician Device Identifier Shelf Expiration Date Model / Serial / Lot Screw Cortex Slftp T8 2.4x28mm 201.778 - Sload 29 Sterilized Jan 31, 2023 Explanted:Qty: 1 on 02/05/2023 at [facility] Screw Left: Elbow J&J- DEPUY SYNTHES 201.778 / LOAD 29 STERILIZED JAN 31, 2023 / Screw Cortex Slftp T8 2.4x6mm 201.756 - Sload 29 Sterilized Jan 31, 2023 Explanted:Qty: 1 on 02/05/2023 at [facility] Screw Left: Elbow J&J- DEPUY SYNTHES 201.756 / LOAD 29 STERILIZED JAN 31, 2023 / Radial Head W/ 025mm Hd, 06.5mm Stm, 11 (+0)Mm Hdht, Ster Explanted:Qty: 1 on 02/05/2023 at [facility] Left: Elbow [employer] 07/13/2025 09.405.560S / / [id number] Procedures Procedure Name Priority Date/Time Associated Diagnosis Comments HEMOGLOBIN A1C Stat 01/08/2024 5:45 AM CDT COLONOSCOPY REPORT 02/10/2019 4: 54 PM CDT from Last 3 Months or Most Recently Relevant to Health Maintenance Results * (ABNORMAL) HEMOGLOBIN A1C (01/08/2024 5:45 AM CDT) HEMOGLOBIN A1C 6.1(H) <5.7 % 01/08/2024 11:56 AM CDT [facility] EST. AVG GLUCOSE, A1C 128 mg/dL 01/08/2024 11:56 AM CDT [facility] Blood Venipuncture / Unknown 01/08/2024 5:45 AM CDT 01/08/2024 5:54 AM CDT Narrative [facility] - 01/08/2024 11:56 AM CDT HGB A1C INTERPRETATION NORMAL: <5.7% PRE-DIABETES: 5.7 - 6.4% DIABETES: 6.5% OR GREATER us Gina Martinez NP CHEMISTRY ORDERABLES Final R esult [facility]# [id number] [address] [facility] [place] [id number] * COLONOSCOPY REPORT (02/10/2019 4:54 PM CDT) Narrative Procedure Note Jorge Luis Flaherty MD - 02/10/2019 4:53 PM CDT [facility] Endoscopy Patient Name: Alexi Florian Procedure Date: [...] Number of Addenda: [address] ; [place] [address] Jorge Luis Flaherty MD GI PROCEDURE ORDERABLES Fi nal Result from Last 3 Months or Most Recently Relevant to Health Maintenance Additional Health Concerns Active Problems Noted Date Diagnosed Date Heart Failure Problem 03/16/2024 Heart Failure Problem 03/16/2024 Heart Failure Problem 03/16/2024 Heart Failure Problem 03/16/2024 Heart Failure Problem 03/16/2024 Insurance RX INFOCROSSING Medicaid RX [facility] Commercial RX [facility] PLANS (INTERNAL) [facility] RX [facility] Commercial [address] [facility] [place] [address] [facility] [place] [address] Advance Directives For more information, please contact: [phone] * Full Code (Latest Code Status on [...] 12:56 AM 02/05/2023 10:18 PM Care Teams Pattern Drafter Relationship Specialty Start Date End Date Ricco Teran MD PCP - General Internal Medicine 12/08/18
--- OUTSIDE RECORDS SUMMARY | 2025-02-07 04:07 | XMS_ITS | Encounter Summary ---
Author Organization [facility] Address [address] [place] [address] Care Team Providers Care Igniter Capper Name Role Phone Ricco Teran MD Primary Care Provider [phone] Encounter Details Date Type Department Care Team (Latest Contact Info) Description 10/01/2003 Outpatient Historical [facility] JOSE RAFAEL Chavarria, Patric Moran MD [address] 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 Gender Identity Not on file Sexual Orientation Not on file documented as of this encounter Plan of Treatment Upcoming Encounters Date Type Department Care Team (Late st Contact Info) Description 04/14/2025 10:30 AM MGMT CONSULTANT Office Visit [facility] Heart and Vascular - [facility] [address] [facility] [address] [place] [address] Allan Heard MD [address] [facility] [address] [place] [address] documented as of this encounter [...] documented as of this encounter Care Teams Igniter Capper Relationship Specialty Start Date End Date Ricco Teran MD PCP - General Internal Medicine 12/08/18 documented as of this encounter
--- OUTSIDE RECORDS SUMMARY | 2025-02-07 04:07 | XMS_ITS | Encounter Summary ---
Author Organization [facility] Address [address] [place] [address] Care Team Providers Care Computer Technical Support Specialist Name Role Phone Ricco Teran MD Primary Care Provider [phone] Encounter Details Date Type Department Care Team (Late st Contact Info) Description 07/15/2001 Outpatient Historical [facility] Internal Medicine Medical [place] [email or web address] [address] [facility] [address] [address] Guillaume Villarreal MD NO ADDRESS ON FILE Social History Tobacco Use Types Packs/Day Years Used Date Smoking Tobacco: Never Assessed Sex and Gender Information Value Date Recorded Sex Assigned at Not on file Legal Sex Male 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 Gender Identity Not on file Sexual Orientation Not on file documented as of this encounter Plan of Treatment Upcoming Encounters Date Type Department Care Team (Late st Contact Info) Description 04/14/2025 10:30 AM CELL TUBER MACHINE Office Visit [facility] Heart and Vascular - [facility] [address] [place] [address] Allan Heard MD [address] [facility] [address] [place] [address] documented as of this encounter [...] documented as of this encounter Care Teams Computer Technical Support Specialist Relationship Specialty Start Date End Date Ricco Teran MD PCP - General Internal Medicine 12/08/18 documented as of this encounter
--- OUTSIDE RECORDS SUMMARY | 2025-02-07 04:07 | XMS_ITS | Encounter Summary ---
Author Organization [facility] Address [address] [place] [address] Care Team Providers Care Food Safety Technician Name Role Phone Ricco Teran MD Primary Care Provider [phone] Encounter Details Date Type Department Care Team (Late st Contact Info) Description 11/28/2000 Outpatient Historical [facility] Internal Medicine Medical [place] [facility] [address] [facility] [facility] [address] [address] Patric Chavarria MD [address] 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 Gender Identity Not on file Sexual Orientation Not on file documented as of this encounter Plan of Treatment Upcoming Encounters Date Type Department Care Team (Late st Contact Info) Description 04/14/2025 10:30 AM ULTRASOUND COORDINATOR Office Visit [facility] Heart and Vascular - [facility] [address] [facility] [address] [place] [address] Allan Heard MD [address] [facility] [address] [place] [address] documented as of this encounter [...] documented as of this encounter Care Teams Food Safety Technician Relationship Specialty Start Date End Date Ricco Teran MD PCP - General Internal Medicine 12/08/18 documented as of this encounter
--- OUTSIDE RECORDS SUMMARY | 2025-02-07 04:07 | XMS_ITS | Encounter Summary ---
Author Organization [facility] Address [address] [place] [address] Care Team Providers Care Armature Straightener Name Role Phone Ricco Teran MD Primary Care Provider [phone] Encounter Details Date Type Department Care Team (Latest Contact Info) Description 02/29/2004 Inpatient Historical [facility] PATIENT IN A BED Luci Hollingsworth MD [address] [place] [address] Annie Horvath MD [address] [facility] [address] [place] [address] DEPRESS PSYCHOSIS-UNSPEC (Primary Dx) Social History Tobacco Use Types Packs/Day Years Used Date Smoking Tobacco: Never Assessed Sex and Gender Information Value Date Recorded Sex Assigned at Not on file Legal Sex Male 3:08 AM TELESCOPE REPAIRER Gender Identity Not on file Sexual Orientation Not on file documented as of this encounter Plan of Treatment Upcoming Encounters Date Type Department Care Team (Late st Contact Info) Description 04/14/2025 10:30 AM TELESCOPE REPAIRER Office Visit [facility] Heart and Vascular - [facility] [address] [place] [address] Allan Heard MD [address] [facility] [address] [place] [address] documented as of this encounter [...] documented as of this encounter Care Teams Armature Straightener Relationship Specialty Start Date End Date Ricco Teran MD PCP - General Internal Medicine 12/08/18 documented as of this encounter
--- OUTSIDE RECORDS SUMMARY | 2025-02-07 04:07 | XMS_ITS | Encounter Summary ---
Author Organization [facility] Address [address] [place] [address] Care Team Providers Care Mac Developer Name Role Phone Ricco Teran MD Primary Care Provider [phone] Encounter Details Date Type Department Care Team (Late st Contact Info) Description 10/01/2003 Outpatient Historical [facility] Internal Medicine Medical [place] [facility] [address] [facility] [address] [address] Patric Chavarria MD [address] 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 SCIENTIST Gender Identity Not on file Sexual Orientation Not on file documented as of this encounter Plan of Treatment Upcoming Encounters Date Type Department Care Team (Late st Contact Info) Description 04/14/2025 10:30 AM CHEMICAL LABORATORY SCIENTIST Office Visit [facility] Heart and Vascular - [facility] [address] [facility] [address] [place] [address] Allan Heard MD [address] [facility] [address] [place] [address] documented as of this encounter [...] documented as of this encounter Care Teams Mac Developer Relationship Specialty Start Date End Date Ricco Teran MD PCP - General Internal Medicine 12/08/18 documented as of this encounter
--- OUTSIDE RECORDS SUMMARY | 2025-02-07 04:07 | XMS_ITS | Encounter Summary ---
Author Organization [facility] Address [address] [place] [address] Care Team Providers Care Wood Calker Name Role Phone Ricco Teran MD Primary Care Provider [phone] Encounter Details Date Type Department Care Team (Latest Contact Info) Description 11/28/2000 Outpatient Historical [facility] JOSE RAFAEL Chavarria, Patric Moran MD [address] [facility] [address] [address] Abdominal pain, unspecified site (Primary Dx) Social History Tobacco Use Types Packs/Day Years Used Date Smoking Tobacco: Never Assessed Sex and Gender Information Value Date Recorded Sex Assigned at Not on file Legal Sex Male 3:08 AM SOFTWARE IMPLEMENTATION SPECIALIST Gender Identity Not on file Sexual Orientation Not on file documented as of this encounter Plan of Treatment Upcoming Encounters Date Type Department Care Team (Late st Contact Info) Description 04/14/2025 10:30 AM SOFTWARE IMPLEMENTATION SPECIALIST Office Visit [facility] Heart and Vascular - [facility] [address] [facility] [address] [place] [address] Allan Heard MD [address] [facility] [address] [place] [address] documented as of this encounter [...] documented as of this encounter Care Teams Wood Calker Relationship Specialty Start Date End Date Ricco Teran MD PCP - General Internal Medicine 12/08/18 documented as of this encounter
--- OUTSIDE RECORDS SUMMARY | 2025-02-07 04:08 | XMS_ITS | Clinical Summary ---
Author Organization [facility] Address [address] [place] [address] Care Team Providers Care Marketing Pr Intern Name Role Phone Ricco Teran MD Primary Care Provider [phone] Allergies No known active allergies Medications aspirin [...] (03/16/2019): Added automatically from request for surgery [id number] Encounters Date Type Department Care Team Description 11/30/2024 3:55 AM CDT - 11/30/2024 5:52 AM CDT Emergency [facility] Emergency Department [address] [place] [phone] Tess Thornton MD Abdominal pain (Primary Dx); [...] on file 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 Gender Identity Not on file Sexual Orientation [...] RNA Negative Negative Comment:Testing performed by : [facility], [place] [address] Influenza A RNA Negative Negative [facility] Comment:Testing performed by : [facility], [place] [address] Influenza B RNA Negative Negative [facility] Comment:Testing performed by : [facility], [address] [address] RSV RNA Negative Negative [facility] Comment: Interpretive data: Testing performed by [facility]. This test is performed using the [employer] Smart Xpert Xpress CoV-2/Flu/RSV plus assay. This is a multiplex, real- time reverse transcriptase PCR assay intended for the qualitative detection of nucleic acid from SARS-CoV-2, influenza A, influenza B, and respiratory syncytial virus. This assay has been cleared by the [place] Food and Drug administration. The performance characteristics have been verified by the [facility]. Results must be considered in the clinical context, and a negative result does not rule out infection. Interpretive Data last revised 2023 Testing performed by: [facility], [place] [address] Nasopharyngeal 11/30/2024 4: 47 AM CDT 11/30/2024 4:52 AM CDT Narrative NAVEED SU - 11/30/2024 5:30 AM CDT Is the Patient experiencing symptoms consistent with COVID?->Yes Tess Thornton MD LAB MICROBIOLOGY - GENERAL ORDERABLES Final Result Performing Organization Address [facility] [place] [address] [address] Department [employer] [place] [address] * (ABNORMAL) eGFR (11/30/2024 4:47 [...] was last reviewed 2021. Testing performed by: [facility], [address] [place] [address], [place] [address] Blood 11/30/2024 4:47 AM CDT 11/30/2024 4:52 AM CDT Tess Thornton MD LAB BLOOD ORDERABLE S Final Result Performing Organization Address City/[facility]/[place] [address] [address] Department of [employer] [place], [place] [id number] * (ABNORMAL) Differential, auto (11/30/2024 4:47 AM CDT) Neutrophil abs 7.26(H) 1.50 - 6.50 K/cumm Comment:Testing performed by : [facility], [facility], [place] [address] Imm gran abs 0.08 0.00 - 0.10 K/cumm [facility] Comment:Testing performed by : [facility], [facility] [address], [place] [address] Lymphocyte abs 1.85 0.80 - 3.30 K/cumm [facility] Comment:Testing performed by : [facility], [facility] [address], [place] [address] Monocyte abs 1.07(H) 0.20 - 0.80 K/cumm [facility] Comment:Testing performed by : [facility] [address], [place] [address] Eosinophil abs 0.12 0.00 - 0.50 K/cumm [facility] Comment:Testing performed by : [facility] [address], [place] [address] Basophil abs 0.08 0.00 - 0.10 K/cumm [facility] Comment:Testing performed by : [facility], [facility] [address], [place] [address] Neutrophil pct 69.4 % [facility] Comment: Interpretive Data Percent cell count reference ranges are not reported, since discordance with absolute values may lead to misinterpretation of CBC data. Current Interpretive Data was last revised on 2017. Testing performed by: [facility], [facility], [place] [address] Imm gran pct 0.8 % [facility] Comment: Interpretive Data Percent cell count reference ranges are not reported, since discordance with absolute values may lead to misinterpretation of CBC data. Current Interpretive Data was last revised on 2017. Testing performed by: [facility] [address], [place] [address] Lymphocyte pct 17.7 % [facility] Comment: Interpretive Data Percent cell count reference ranges are not reported, since discordance with absolute values may lead to misinterpretation of CBC data. Current Interpretive Data was last revised on 2017. Testing performed by: [facility], [facility], [place] [address] Monocyte pct 10.2 % [facility] Comment: Interpretive Data Percent cell count reference ranges are not reported, since discordance with absolute values may lead to misinterpretation of CBC data. Current Interpretive Data was last revised on 2017. Testing performed [facility] [address], [place] [address] Eosinophil pct 1.1 % NAVEED Comment: Interpretive Data Percent cell count reference ranges are not reported, since discordance with absolute values may lead to misinterpretation of CBC data. Current Interpretive Data was last revised on 2017. Testing performed [facility]: [facility] [address], [place] [address] Basophil pct 0.8 % NAVEED Comment: Interpretive Data Percent cell count reference ranges are not reported, since discordance with absolute values may lead to misinterpretation of CBC data. Current Interpretive Data was last revised on 2017. Testing performed [facility] [address], [place] [address] Blood 11/30/2024 4:47 AM CDT 11/30/2024 4:52 AM CDT us Tess Thornton MD LAB BLOOD ORDERABLE S Final Result [facility] [address] [address] Department [place] [address] * (ABNORMAL) CBC with auto differential (11/30/2024 4:47 AM CDT) WBC 10.46(H) 3.80 - 9.90 K/cumm Comment:Testing performed [facility] : [facility] [address], [place] [address] Hgb 15.2 13.0 - 17.5 g/dL NAVEED Comment:Testing performed [facility] : [facility], [place] [address] Hct 44.3 38.9 - 50.3 % NAVEED Comment:Testing performed by : [facility] [address] [place] [address] Plt 174 150 - 400 K/cumm NAVEED Comment:Testing performed by : [facility] [address], [place] [address] MPV 9.4 9.1 - 12.3 fL [facility] Comment:Testing performed by : [facility], [facility] [place] [address] RBC 4.75 4.30 - 5.80 M/cumm [facility] Comment:Testing performed by : [facility] [address] [address] [place] [address] MCV 93.3 81.3 - 96.4 fL [facility] Comment:Testing performed by : [facility] [address] [place] [address] MCH 32.0 27.1 - 33.3 pg [facility] Comment:Testing performed by : [facility] [address] [place], [place] [address] MCHC 34.3 32.3 - 35.7 g/dL [facility] Comment:Testing performed by : [facility] [address] [place], [place] [address] RDW CV 12.3 11.1 - 14.9 % ANGELIKANER CH Comment:Testing performed by : [facility] [address] [place], [place] [address] RDW SD 42.4 35.7 - 48.1 fL [facility] Comment:Testing performed by : [facility] [place] [address] NRBC abs 0.00 0.00 - 0.01 K/cumm [facility]GEL[facility] CH Comment:Testing performed by : [facility] [place] [address] Blood 11/30/2024 4:47 AM CDT 11/30/2024 4:52 AM CDT Tess Thornton MD LAB BLOOD ORDERABLE S Final Result NAVEED [address] [address] Department [place] [address] * Lipase (11/30/2024 4:47 AM CDT) Lipase 40 10 - 99 Units/L Comment: Hemolyzed sample, result may be falsely decreased Testing performed by: [facility] [place] [address] Blood 11/30/2024 4:47 AM CDT 11/30/2024 4:52 AM CDT us Tess Thornton MD LAB BLOOD ORDERABLE S Final Result [facility] [address] [address] Department [place] [address] * (ABNORMAL) Comprehensive metabolic panel (11/30/2024 4:47 AM CDT) Sodium 135 135 - 145 mmol/L Comment:Testing performed [facility] : [facility] [address], [place] [address] Potassium, pl 4.7 3.3 - 4.9 mmol/L [facility] Comment: Hemolysis present. Results may be affected. Testing performed [facility]: [facility] [address], [place] [address] Chloride 101 97 - 110 mmol/L [facility] Comment:Testing performed by : [facility] [address], [place] [address] CO2 21(L) 22 - 32 mmol/L [facility] Comment:Testing performed by : [facility] [address], [place] [address] Anion gap 13 2 - 15 mmol/L [facility] Comment:Testing performed by : [facility] [place] [address] BUN 19 6 - 25 mg/dL [facility] Comment:Testing performed by : [facility] [address], [place] [address] Creatinine 1.54(H) 0.80 - 1.30 mg/dL [facility] Comment:Testing performed by : [facility] [place] [address] Glucose 109 70 - 199 mg/dL [facility] Comment: Interpretive Data Fasting glucose [...] was last revised 2022. Testing performed by: [facility] [place] [address] Calcium 9.6 8.5 - 10.3 mg/dL [facility] Comment:Testing performed by : [facility] [address], [place] [address] Bilirubin, total 0.5 0.1 - 1.2 mg/dL [facility] Comment:Testing performed by : [facility] [address], [place] [address] Protein, pl 7.4 6.5 - 8.5 g/dL [facility] Comment:Testing performed by : [facility] [place] [address] Albumin 4.0 3.5 - 5.0 g/dL [facility] Comment:Testing performed by : [facility] [address], [place] [address] Alk phos 102 40 - 130 Units/L [facility] Comment:Testing performed by : [facility] [address], [place] [address] ALT 46 7 - 55 Units/L [facility] Comment:Testing performed by : [facility] [place] [address] AST 41 10 - 50 Units/L [facility] Comment: Hemolysis present. Results may be affected. Testing performed by: [facility] [place] [address] Blood 11/30/2024 4:47 AM CDT 11/30/2024 4:52 AM CDT Tess Thornton MD LAB BLOOD ORDERABLE S Final Result [facility] [address] [address] Department [place] [address] from Last 3 Months Insurance [facility] Care Teams Marketing Pr Intern Relationship Specialty Start Date End Date Ricco Teran MD PCP - General Internal Medicine 03/25/19
--- OUTSIDE RECORDS SUMMARY | 2025-02-07 04:08 | XMS_ITS | Encounter Summary ---
Author Organization [facility] Address [address] [place] [address] Care Team Providers Care Spinning Bath Patroller Name Role Phone Ricco Teran MD Primary Care Provider [phone] Encounter Details Date Type Department Care Team (Late st Contact Info) Description 11/01/2006 Orders Only [facility] Internal Medicine Medical [place] [facility] [address] [facility] [address] [place] [address] Patric Chavarria MD [facility] [address] [place] [address] Social History Tobacco Use Types Packs/Day Years Used Date Smoking Tobacco: Never Assessed Sex and Gender Information Value Date Recorded Sex Assigned at Not on file 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 CURRENT ALLERGY LIST: [facility] NUMBER: [phone] SECTION 1: REQUESTED ACTION lori 11/01/06 at [...] st Contact Info) Description 04/14/2025 10:30 AM EMISSIONS INSPECTOR Office Visit [facility] Heart and Vascular - [facility] [address] [place] [address] [place] [phone] Allan Heard MD [address] [facility] [address] [place] [address] documented as of this encounter [...] documented as of this encounter Care Teams Spinning Bath Patroller Relationship Specialty Start Date End Date Ricco Teran MD PCP - General Internal Medicine 12/08/18 documented as of this encounter
--- OUTSIDE RECORDS SUMMARY | 2025-02-07 04:08 | XMS_ITS | Encounter Summary ---
Author Organization [facility] Address 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 Please advise to pharmacy as the request must be process with patient primary physician. Call-back Number: [phone] The patient's preferred pharmacy is [id number] - [place], [place] - [phone] E WORKER documented in this encounter Plan of Treatment Upcoming Encounters Date Type Department Care Team (Late st Contact Info) Description 04/14/2025 10:30 AM HOUSE WORKER Office Visit [facility] Heart [facility] Vascular - [facility] [address] [place] [address] [place] [phone] Allan Heard MD [address] [address] documented as of this encounter Visit Diagnoses Not on filedocumented in this encounter Additional Health Concerns Infection Onset Date Last Indicated Resolved Time R/O COVID-19 01/12/2024 01/12/2024 01/12/2024 12:2 1 PM CDT MRSA Comment:01/12/24 blood 01/12/2024 01/12/2024 02/11/2024 1:16 AM CDT documented as of this encounter Care Teams Senior Medical Technologist Relationship Specialty Start Date End Date Ricco Teran MD PCP - General Internal Medicine 12/08/18 documented as of this encounter
--- OUTSIDE RECORDS SUMMARY | 2025-02-07 04:08 | XMS_ITS | Clinical Summary ---
Author Organization [facility] [employer] Address [address] [place] [address] Care Team Providers Care Meat Butcher Name Role Phone Unavailable Primary Care Provider Unavailabl e Source Comments [facility] [employer],non-owned Affiliates and Associated Physician Practices is amultiple site organization consisting of ambulatory clinics and hospital sitesin [place], [place], [place] and [place]. This disclosure is being madepursuant to the Care Everywhere program and may not contain all information available regarding this patient. 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
--- OUTSIDE RECORDS SUMMARY | 2025-02-07 04:08 | XMS_ITS | Encounter Summary ---
Author Organization [facility] Address [address] [place] [address] Care Team Providers Care Wire Splicer Name Role Phone Ricco Teran MD Primary Care Provider [phone] Encounter Details Date Type Department Care Team (Late st Contact Info) Description 06/19/2004 Outpatient Historical [facility] Internal Medicine Medical [place] [facility] [address] [facility] [address] [address] Anjelica Schaeffer MD Social History Tobacco Use Types Packs/Day Years Used Date Smoking Tobacco: Never Assessed Sex and Gender Information Value Date Recorded Sex Assigned at Not on file 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 Gender Identity Not on file Sexual Orientation Not on file documented as of this encounter Last Filed Vital Signs Vital Sign Reading Time Taken Comments Blood Pressure 140/86 06/19/2004 9:15 AM GEAR MILLING MACHINE SET UP OPERATOR Pulse 104 06/19/2004 9:15 AM GEAR MILLING MACHINE SET UP OPERATOR Temperature 37.1 C (98.8 F) 06/19/2004 9:15 AM GEAR MILLING MACHINE SET UP OPERATOR Respiratory Rate 20 06/19/2004 9:15 AM GEAR MILLING MACHINE SET UP OPERATOR Oxygen Saturation - - Inhaled Oxygen Concentration - - Weight 73.5 kg (162 lb) 06/19/2004 9:15 AM GEAR MILLING MACHINE SET UP OPERATOR Height 170.2 cm (5' 7) 06/19/2004 9:15 AM GEAR MILLING MACHINE SET UP OPERATOR Body Mass Index 25.37 06/19/2004 9:15 AM GEAR MILLING MACHINE SET UP OPERATOR documented in this encounter Plan of Treatment Upcoming Encounters Date Type Department Care Team (Late st Contact Info) Description 04/14/2025 10:30 AM GEAR MILLING MACHINE SET UP OPERATOR Office Visit [facility] Heart and Vascular - [facility] [address] [place] [address] Allan Heard MD [address] [facility] [address] [place] [address] documented as of this encounter Visit Diagnoses [...] as of this encounter Care Teams Wire Splicer Relationship Specialty Start Date End Date Ricco Teran MD PCP - General Internal Medicine 12/08/18 documented as of this encounter
--- OUTSIDE RECORDS SUMMARY | 2025-02-07 04:08 | XMS_ITS | Clinical Summary ---
Author Organization [facility] Address [address] [place] [address] Phone Care Team Providers Care Ticket Sorter Name Role Phone Ricco Teran MD Primary Care Provider [phone] Allergies No known active allergies Medications acetaminophen [...] Tablet 3 Active naloxone (NARCAN) 4 mg/spray [place], Non-Aerosol EMERGENCY USE ONLY: Administer 1 spray [...] be different from the original. Dr Heard Financial Analysis Consultant AWV 12/18/2018, 12/22/19, 05/03/2022, 01/27/2024 Problem Noted Date Diagnosed Date Coronary artery disease invo lving tolowa dee-ni' coronary artery of tolowa dee-ni' heart without angina pectoris 09/30/2024 Benign hypertension [...] opacities present adjacent to this. History of LA (myocardial infarction) 01/08/2024 Essential hypertension 05/01/2023 HFrEF (heart failure with reduced ejection fract ion) 01/25/2023 Overview (01/24/2024): Echo EF 30% 01/05 Echo EF 40% 04/06 Echo EF 45-50% 01/06 Echo EF 50% 02/05 Anginal equivalent 01/24/2023 Coronary artery disease of n ative artery of tolowa dee-ni' heart with stable angina pectoris 01/04/2023 Overview [...] Hosp 09/26- for alcohol and meth use. Hen[place] 600 mg HS Gabapentin 300 mg TID [...] Resolved Date Coronary artery disease invo lving tolowa dee-ni' coronary artery of tolowa dee-ni' heart without angina pectoris 05/05/2024 07/27/2024 Benign [...] Unilateral inguinal hernia, right 06/14/2015 12/15/2018 Methotrexate, prison, current use 09/23/2013 09/23/2013 Methamphetamine addiction 09/23/2013 [...] Data STL ABSTRACTION Provider, Abstract 12/01/2024 Abstract [facility] Internal Medicine [address] [id number] Ricco Teran MD from Last 3 Months Immunizations Immunization Administration Dates Next Due (ADACEL/BOOSTRIX)(10 YR UP) TDAP VACCINE, 0.5ML, IM 01/31/2023,06/15/2014,12/12/2009 Influenza Seasonal Unspecifi ed Formulation IM 04/21/2020,04/27/2008 Pneumococcal conjugate, unsp ecified formulation 04/27/2008 Family History Medical History Relation Name Comments Heart Disease Father Leukemia Father Lymphoma Father Cancer Mother Colon Cancer Mother Hypertension Mother Leukemia Mother Lung Cancer Mother Other Mother Carl Mraadiaga Relation Name Status Comments Father Mother Social [...] on file Legal 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 [address] [place] [address] Allan Heard MD [address] [facility] [address] [place] [address] Health Maintenance Due Date Last [...] Goal Care Plan Heart Failure Problem No iRcco Teran MD Heart Failure Goal Care Plan Heart Failure Problem No Zahira Wynne LPN Heart Failure Goal Care Plan Heart Failure Problem No Zahira Wynne LPN Medical Devices Implanted Type Area Locksmith Device Identifier Shelf Expiration Date Model / Serial / Lot Mesh Parietex Progrip [id number] - [id number] Implanted:Qty: 1 on 04/25/2016 by Francisco Murrieta MD at [facility] Mesh Right: Inguinal COVIDIEN- [place] SURG [id number] 08/12/2020 [id number] / / [id number] Plate Lcp Adaption 2.4mm 247.366 - Sload 29 Sterilized Jan 31, 2023 Implanted:Qty: 1 on 02/05/2023 by Deep France MD at [facility] Plate Left: Elbow J&J- DEPUY SYNTHES 247.366 / LOAD 29 STERILIZED JAN 31, 2023 / Plate Olecranon Va-Lcp 02.107.304 - Sload 113 Sterilized Feb 02, 2023 Implanted:Qty: 1 on 02/05/2023 by Deep France MD at [facility] Plate Left: Elbow J&J- DEPUY SYNTHES 02.107.304S / LOAD 113 STERILIZED FEB 02, 2023 / Plate-Y Lcp 2.4mm 3hd Hole 249.669 - Sload 29 Sterilized Jan 31, 2023 Implanted:Qty: 1 on 02/05/2023 by Deep France MD at [facility] Plate Left: Elbow J&J- DEPUY SYNTHES 249.669 / LOAD 29 STERILIZED JAN 31, 2023 / Screw Cortex Slftp T8 2.4x16mm 201.766 - Sload 29 Sterilized Jan 31, 2023 Implanted:Qty: 1 on 02/05/2023 by Deep France MD at [facility] Screw Left: Elbow J&J- DEPUY SYNTHES 201.766 / LOAD 29 STERILIZED JAN 31, 2023 / Screw St Va Loc 2.7x26mm 02.211.026 - Sload 15 Sterilized Feb 04, 2023 Implanted:Qty: 1 on 02/05/2023 by Deep France MD at [facility] Screw Left: Elbow J&J- DEPUY SYNTHES 02.211.026 / LOAD 15 STERILIZED FEB 04, 2023 / Screw St Va Loc 2.7x20mm 02.211.020 - Sload 15 Sterilized Feb 04, 2023 Implanted:Qty: 1 on 02/05/2023 by Deep France MD at [facility] Screw Left: Elbow J&J- DEPUY SYNTHES 02.211.020 / LOAD 15 STERILIZED FEB 04, 2023 / Screw St Va Loc 2.7x34mm 02.211.034 - Sload 15 Sterilized Feb 04, 2023 Implanted:Qty: 1 on 02/05/2023 by Deep France MD at [facility] Screw Left: Elbow J&J- DEPUY SYNTHES 02.211.034 / LOAD 15 STERILIZED FEB 04, 2023 / Screw St Va Loc 2.7x60mm 02.211.060 - Sload 15 Sterilized Feb 04, 2023 Implanted:Qty: 1 on 02/05/2023 by Deep France MD at [facility] Screw Left: Elbow J&J- DEPUY SYNTHES 02.211.060 / LOAD 15 STERILIZED FEB 04, 2023 / Screw St Va Loc 2.7x50mm 02.211.050 - Sload 15 Sterilized Feb 04, 2023 Implanted:Qty: 1 on 02/05/2023 by Deep France MD at [facility] Screw Left: Elbow J&J- DEPUY SYNTHES 02.211.050 / LOAD 15 STERILIZED FEB 04, 2023 / Screw St Va Loc 2.7x40mm 02.211.040 - Sload 15 Sterilized Feb 04, 2023 Implanted:Qty: 1 on 02/05/2023 by Deep France MD at [facility] Screw Left: Elbow J&J- DEPUY SYNTHES 02.211.040 / LOAD 15 STERILIZED FEB 04, 2023 / Screw Mtphysl St T8 2.7x22mm 02.118.522 - Sload 15 Sterilized Feb 04, 2023 Implanted:Qty: 1 on 02/05/2023 by Deep France MD at [facility] Screw Left: Elbow J&J- DEPUY SYNTHES 02.118.522 / LOAD 15 STERILIZED FEB 04, 2023 / Screw St Loc Stdrv 3.5x20mm 212.106 - Sload 15 Sterilized Feb 04, 2023 Implanted:Qty: 2 on 02/05/2023 by Deep France MD at [facility] Screw Left: Elbow J&J- DEPUY SYNTHES 212.106 / LOAD 15 STERILIZED FEB 04, 2023 / Screw St Loc Stdrv 3.5x18mm 212.105 - Sload 15 Sterilized Feb 04, 2023 Implanted:Qty: 1 on 02/05/2023 by Deep France MD at [facility] Screw Left: Elbow J&J- DEPUY SYNTHES 212.105 / LOAD 15 STERILIZED FEB 04, 2023 / Screw Cortex Slftp 3.5x26mm 204.826 - Sload 15 Sterilized Feb 04, 2023 Implanted:Qty: 1 on 02/05/2023 by Deep France MD at [facility] Screw Left: Elbow J&J- DEPUY SYNTHES 204.826 / LOAD 15 STERILIZED FEB 04, 2023 / 2.0 X 20mm Cchs Lt Implanted:Qty: 2 on 02/05/2023 by Deep France MD at [facility] Screw Left: Elbow [employer]™ [employer] [facility] 04.334.020 / / Description:El[employer]search COMP ONETS ON REQUISITION# [id number] Screw Cortex Slftp T8 2.4x26mm 201.776 - Sload 29 Sterilized Jan 31, 2023 Implanted:Qty: 2 on 02/05/2023 by Deep France MD at [facility] Screw Left: Elbow J&J- DEPUY SYNTHES 201.776 / LOAD 29 STERILIZED JAN 31, 2023 / Screw Cortex Slftp T8 2.4x10mm 201.760 - Sload 29 Sterilized Jan 31, 2023 Implanted:Qty: 4 on 02/05/2023 by Deep France MD at [facility] Screw Left: Elbow J&J- DEPUY SYNTHES 201.760 / LOAD 29 STERILIZED JAN 31, 2023 / Stent Synergy Xd 2.43q63fo Evrlms Elut [id number] - [id number] Implanted:Qty: 1 on 01/07/2023 at [facility] Stent Left: Coronary [employer] 12/18/2023 [id number] 70 / / [id number] Stent Synergy Xd 3.0x24mm Evrlms Elut [id number] - [id number] Implanted:Qty: 1 on 01/25/2023 at [facility] Stent N/A: Coronary [employer] 10/19/2023 [id number] 00 / / [id number] Stent Synergy Xd 2.92w88po Evrlms Elut [id number] - [id number] Implanted:Qty: 1 on 01/09/2024 by Isha Steel Placer () MD Julián at [facility] Stent N/A: Heart [employer] [id number] 10/01/2025 [id number] 70 / / [id number] Stent Synergy Xd 3.0x16mm Evrlms Elut [id number] - [id number] Implanted:Qty: 1 on 01/09/2024 by Isha Steel Placer Bri) MD Julián at [facility] Stent N/A: Heart [employer] [id number] 07/01/2025 [id number] 00 / / [id number] Radial Head W/ 022mm Hd, 06.5mm Stm, 10(+0)Mm Hd Ht, Ster Implanted:Qty: 1 on 02/05/2023 by Deep France MD at [facility] Left: Elbow [employer] 01/12/2027 09.405.260S / / [id number] Explanted Type Area Locksmith Device Identifier Shelf Expiration Date Model / Serial / Lot Screw Cortex Slftp T8 2.4x28mm 201.778 - Sload 29 Sterilized Jan 31, 2023 Explanted:Qty: 1 on 02/05/2023 at [facility] Screw Left: Elbow J&J- DEPUY SYNTHES 201.778 / LOAD 29 STERILIZED JAN 31, 2023 / Screw Cortex Slftp T8 2.4x6mm 201.756 - Sload 29 Sterilized Jan 31, 2023 Explanted:Qty: 1 on 02/05/2023 at [facility] Screw Left: Elbow J&J- DEPUY SYNTHES 201.756 / LOAD 29 STERILIZED JAN 31, 2023 / Radial Head W/ 025mm Hd, 06.5mm Stm, 11 (+0)Mm Hdht, Ster Explanted:Qty: 1 on 02/05/2023 at [facility] Left: Elbow [employer] 07/13/2025 09.405.560S / / [id number] Procedures Procedure Name Priority Date/Time Associated Diagnosis Comments HEMOGLOBIN A1C Stat 01/08/2024 5:45 AM CDT COLONOSCOPY REPORT 02/10/2019 4: 54 PM CDT from Last 3 Months or Most Recently Relevant to Health Maintenance Results * (ABNORMAL) HEMOGLOBIN A1C (01/08/2024 5:45 AM CDT) HEMOGLOBIN A1C 6.1(H) <5.7 % 01/08/2024 11:56 AM CDT [facility] EST. AVG GLUCOSE, A1C 128 mg/dL 01/08/2024 11:56 AM CDT [facility] Blood Venipuncture / Unknown 01/08/2024 5:45 AM CDT 01/08/2024 5:54 AM CDT Narrative [facility] - 01/08/2024 11:56 AM CDT HGB A1C INTERPRETATION NORMAL: <5.7% PRE-DIABETES: 5.7 - 6.4% DIABETES: 6.5% OR GREATER us Gina Martinez NP CHEMISTRY ORDERABLES Final R esult [facility]# [id number] [address] [place] [address] * COLONOSCOPY REPORT (02/10/2019 4:54 PM CDT) Narrative Procedure Note Jorge Luis Flaherty MD - 02/10/2019 4:53 PM CDT [facility] Endoscopy Patient Name: Alexi Florian Procedure [...] of Addenda: [address] ; [place] [address] Jorge Luis Flaherty MD GI PROCEDURE ORDERABLES [...] Internal Plans RX [employer] [address] [facility] [place] [address] [facility] [place] [facility] [place] [address] Advance Directives For more information, please contact: [phone] * Full Code (Latest Code Status on [...] 12:56 AM 02/05/2023 10:18 PM Care Teams Ticket Sorter Relationship Specialty Start Date End Date Ricco Teran MD PCP - General Internal Medicine 12/08/18
--- OUTSIDE RECORDS SUMMARY | 2025-02-07 04:08 | XMS_ITS | Encounter Summary ---
Author Organization [facility] Address 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 Topic: Medication Request >> Aug 08, 2023 2:30 PM Tiffanie Hall wrote: Caller is requesting: Medication - New Request (Not Currently Taking) Medication (Ask patient/caregiver to spell if possible): something for lice Preferred Pharmacy: [id number] - [facility] [phone] [phone] [address] Patient/Caregiver Callback Number: [phone] (home) Call Notes: Patient had head lice documented in this encounter Plan of Treatment Upcoming Encounters Date Type Department Care Team (Late st Contact Info) Description 04/14/2025 10:30 AM QUALITATIVE RESEARCHER Office Visit [facility] Heart and Vascular - [facility] [address] [place] [address] [address] [place] [address] Allan Heard MD [address] [facility] [address] [place] [address] documented as of this encounter Visit Diagnoses Not on filedocumented in this encounter Additional Health Concerns Infection Onset Date Last Indicated Resolved Time R/O COVID-19 01/12/2024 01/12/2024 01/12/2024 12:2 1 PM CDT MRSA Comment:01/12/24 blood 01/12/2024 01/12/2024 02/11/2024 1:16 AM CDT Assessment Noted Time PHQ-9 Depression Total Score: 2 02/22/20 23 3:02 PM QUALITATIVE RESEARCHER documented as of this encounter Care Teams Syrup Shed Supervisor Relationship Specialty Start Date End Date Ricco Teran MD PCP - General Internal Medicine 12/08/18 documented as of this encounter
--- OUTSIDE RECORDS SUMMARY | 2025-02-07 04:08 | XMS_ITS | Encounter Summary ---
Author Organization [facility] Address [address] [place] [address] Care Team Providers Care Mold Mover Name Role Phone Ricco Teran MD Primary Care Provider [phone] Encounter Details Date Type Department Care Team (Late st Contact Info) Description 06/28/2005 Outpatient Historical [facility] Internal Medicine [facility] [place] [address] [place] [address] Patric Chavarria MD [address] [place] [address] [address] [place] [address] Social History Tobacco Use Types Packs/Day Years Used Date Smoking Tobacco: Never Assessed Sex and Gender Information Value Date Recorded Sex Assigned at Not on file Legal Sex Male 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 Gender Identity Not on file Sexual Orientation Not on file documented as of this encounter Last Filed Vital Signs Vital Sign Reading Time Taken Comments Blood Pressure 120/70 06/28/2005 1:45 PM RESIDENTIAL REAL ESTATE APPRAISER Pulse 76 06/28/2005 1:45 PM RESIDENTIAL REAL ESTATE APPRAISER Temperature 36.7 C (98 F) 06/28/2005 1:45 PM RESIDENTIAL REAL ESTATE APPRAISER Respiratory Rate - - Oxygen Saturation - - Inhaled Oxygen Concentration - - Weight 787.9 kg (1737 lb) 06/28/2005 1:45 PM RESIDENTIAL REAL ESTATE APPRAISER Height - - Body Mass Index 272.05 06/19/2004 9:15 AM RESIDENTIAL REAL ESTATE APPRAISER documented in this encounter Plan of Treatment Upcoming Encounters Date Type Department Care Team (Late st Contact Info) Description 04/14/2025 10:30 AM RESIDENTIAL REAL ESTATE APPRAISER Office Visit [facility] Heart and Vascular - [facility] [address] [facility] [address] [place] [address] Allan Heard MD [address] [facility] [address] [place] [address] documented as of this encounter Visit Diagnoses [...] documented as of this encounter Care Teams Mold Mover Relationship Specialty Start Date End Date Ricco Teran MD PCP - General Internal Medicine 12/08/18 documented as of this encounter
--- NOTE | 2025-02-07 04:09 | ED.CHESTPAIN ---
HPI - Chest Pain General Chief Complaint: Chest Pain Stated Complaint: chest pain Time Seen by Provider: 02/07/25 03:45 Source: patient Mode of arrival: ambulatory Limitations: no limitations History of Present Illness HPI narrative: This is a 59-year-old male with history of CAD who presents to the ED for chest pain. Patient states that he was cleaning in his basement last night when he began have left-sided chest pain that does not radiate. Pain is worse with deep inspirations. He states that the only time he has had pain similar to this is when he had his previous heart attacks. He follows with cardiology in [place]. He has also had headache which he states he commonly gets before he has medical problems. Denies cough, congestion, nausea vomiting. Related Data Allergies Allergy/AdvReac Type Severity Reaction Status Date / Time No Known Allergies Allergy Verified 02/07/25 03:43 Review of Systems Review of Systems: Gen.: Denies fevers or chills Eyes: Denies eye pain or visual change ENT: Denies congestion Respiratory: As per atria CV: As per HPI GI: Denies abdominal pain nausea, emesis or diarrhea denies burning, urgency, frequency or hematuria Musculoskeletal: Denies back pain or muscle pain Neuro: Denies numbness, tingling, weakness or focal weakness Skin: Denies rash Except as documented, all other systems reviewed and negative Exam Narrative: APPEARANCE: No acute distress, nontoxic, resting in bed EYES: EOMI HEENT: Normocephalic, atraumatic, OMM RESPIRATORY: No respiratory distress Clear to auscultation bilaterally with no rhonchi wheezing or rales. CARDIOVASCULAR: Mild left parasternal tenderness to palpation. Regular rate and rhythm without murmurs rubs or gallops. ABDOMINAL: Soft, nontender, nondistended, no rebound or guarding MUSCULOSKELETAl: Moves all extremities. No clubbing, cyanosis or edema. NEURO: Awake and alert. Following commands, speech normal, no focal deficits SKIN:: Warm, dry. No rashes lesions or abrasions PSYCHIATRIC: Normal affect/mood, Course Vital Signs Vital signs: Vital Signs Temperature 98 F 02/07/25 03:47 Pulse Rate 62 02/07/25 03:47 Respiratory Rate 26 H 02/07/25 03:47 Blood Pressure 142/92 H 02/07/25 03:47 Pulse Oximetry 99 02/07/25 03:47 Oxygen Delivery Room Air 02/07/25 03:47 Temperature 98 F 02/07/25 03:47 Pulse Rate 62 02/07/25 03:47 Respiratory Rate 26 H 02/07/25 03:47 Blood Pressure 142/92 H 02/07/25 03:47 Pulse Oximetry 98 02/07/25 03:47 Oxygen Delivery Room Air 02/07/25 03:47 MDM - Chest Pain MDM Narrative Medical decision making narrative: 59-year-old male Presenting for chest pain that started 4 hours prior to arrival. On initial evaluation patient was in no acute distress afebrile, hemodynamic stable. Notable exam findings: Reproducible tenderness to palpation to the left chest wall Notable lab findings: CBC and CMP were without significant abnormalities. Troponin negative. Notable imaging findings: Chest x-ray showed no acute Process. Patient was given Toradol and Lidoderm with resolution of the symptoms. Patient's EKGs and labs are without significant high risk changes. Cardiac risk factors reviewed. Patient is felt likely low risk for ACS and reasonable for further risk stratification testing as an outpatient. Pain was not sudden or maximal in onset without tearing or ripping quality. No other signs of symptoms suggest aortic dissection. A low-risk Wells criteria is noted, PE is felt to be unlikely. No pneumonia seen on evaluation today. Patient is felt to be a reasonable candidate for continued evaluation as an outpatient. He was advised follow-up with his family service worker in the next week for re-evaluation. Patient was agreeable to this plan. Given strict return precautions. Differential Diagnosis Differential diagnosis: Likely stable angina, unstable angina pectoris, atypical chest pain, costochondritis and chest pain Medical Records Data Attestation: I reviewed the patient's medical records. Lab Data Attestation: I reviewed the patient's lab results. 02/07/25 04:03 02/07/25 04:03 Labs: Lab Results 02/07/25 Range/Units 04:03 WBC 10.3 H (4.5-10.0) K/mm3 RBC 4.79 (4.6-6.20) M/mm3 Hgb 14.7 (14.0-18.0) g/dL Hct 44.6 (42.0-52.0) % MCV 93.1 (80-100) fl MCH 30.7 (26-34) pg MCHC 33.0 (32-36) g/dl RDW 11.8 (11.5-14.5) % Plt Count 175 (150-375) k/mm3 MPV 9.6 (7.4-10.4) fl Immature Gran % (Auto) 0.4 (0-0.5) % Neut % (Auto) 77.4 H (45.5-73.1) % Lymph % (Auto) 14.2 L (18.3-44.2) % [place] % (Auto) 7.6 (2.6-8.5) % Eos % (Auto) 0.1 (0-4.4) % Baso % (Auto) 0.3 (0.2-1.2) % Lymph # (Auto) 1.46 (0.9-3.2) K/mm3 [place] # (Auto) 0.8 H (0.1-0.6) K/mm3 Eos # (Auto) 0.0 (0-0.3) K/mm3 Baso # (Auto) 0.0 (0.0-0.1) K/mm3 Abs Immat Gran (auto) 0.04 H (0.00-0.031) K/mm3 Absolute Neuts (auto) 7.9 H (1.3-6.7) K/mm3 Absolute Nucleated RBC 0.000 (0.0-0.012) K/mm3 Nucleated RBC % 0.0 (0.0-0.2) % PT 13.3 (11.1-14.7) Seconds INR 1.0 APTT 32.4 (22.3-36.8) Seconds Sodium 137 (137-145) mmol/L Potassium 3.7 (3.4-5.0) mmol/L Chloride 105 (98-107) mmol/L Carbon Dioxide 23 (22-30) mmol/L Anion Gap 9 (4-12) mmol/L BUN 16 (9-20) mg/dL Creatinine 1.12 (0.7-1.3) mg/dL Estim Creat Clear Calc 59 ml/min Estimated GFR > 60 (59 - ) Glucose 108 (65-110) mg/dL Calcium 9.4 (8.4-10.2) mg/dL Total Bilirubin 0.6 (0.2-1.3) mg/dL AST 29 (17-59) U/L ALT 33 (6-50) U/L Alkaline Phosphatase 95 (38-126) U/L Troponin I < 0.012 (0.000-0.034) ng/mL Total Protein 7.4 (6.3-8.2) g/dL Albumin 4.1 (3.5-5.1) g/dL Lipase 231 (23-300) U/L Imaging Data Attestation: I personally reviewed and interpreted this imaging study as follows: My impression: Chest x-ray: Normal cardiac silhouette, no consolidations, no pleural effusions, no pulmonary vascular congestion ECG Data EKG #1: Attestation: I personally reviewed and interpreted this ECG as follows: ECG completion date: 02/07/25 ECG completion time: 03:51 Interpretation: Normal sinus rhythm, normal axis, moderate intraventricular conduction delay, no acute ST or T-wave changes Discharge Plan Discharge Clinical Impression: Atypical chest pain Patient Disposition: Home Condition: Stable Instructions: Antibiotic Form, Chest Pain (ED) Additional Instructions: Labs, EKG, chest x-ray were obtained and were all reassuring that there is no cardiac damage at this time. I suspect you may have a costochondritis causing his symptoms. Take Tylenol and ibuprofen for your pain. Follow up with her family service worker next week for re-evaluation. Return to the ED for any new or worsening symptoms. For pain, discomfort or temperature greater than or equal to 100.8 ?F please alternate the following 2 medications as needed. First medication- acetaminophen/Tylenol- 1000mg every 6-8 hours as needed for above indications. Second medication- ibuprofen/Motrin-600mg every 6-8 hours as needed for above indication. Patient Language: Turkmen Prescriptions: No Action levofloxacin 750 mg tablet 750 mg PO DAILY Qty: 6 5RF prednisone 20 mg tablet 40 mg PO DAILY 5 Days Qty: 10 0RF Zyrtec 10 mg capsule 10 mg PO BID PRN (Reason: allergy symptoms) Qty: 20 0RF Follow-up/Referrals: UNKNOWN,DOCTOR [Primary Care Provider]
[2025-02-07 04:10] LABS: Hematocrit 44.6 % (42.0-52.0); Hemoglobin 14.7 g/dL (14.0-18.0); Immature Granulocyte Percent A 0.4 % (0-0.5); Lymphocytes Absolute Auto 1.46 K/mm3 (0.9-3.2); Mean Corpuscular HGB Conc 33.0 g/dl (32-36); Mean Corpuscular Hemoglobin 30.7 pg (26-34); Mean Corpuscular Volume 93.1 fl (80-100); Nucleated Red Blood Cells Absolute Auto 0.000 K/mm3 (0.0-0.012); Nucleated Red Blood Cells Perc 0.0 % (0.0-0.2); Platelet Count Result 175 k/mm3 (150-375); Red Blood Count 4.79 M/mm3 (4.6-6.20); White Blood Count 10.3 K/mm3 (4.5-10.0)
[2025-02-07] MEDS: ASPIRIN 81 MG CHEWABLE TABLET 324 MG PO (04:13)
[2025-02-07 04:20] LABS: INR 1.0; Partial Thromboplastin Time 32.4 Seconds (22.3-36.8); Prothrombin Time 13.3 Seconds (11.1-14.7)
[2025-02-07 04:30] LABS: Alanine Aminotransferase 33 U/L (6-50); Albumin Level 4.1 g/dL (3.5-5.1); Alkaline Phosphatase 95 U/L (38-126); Anion Gap 9 mmol/L (4-12); Aspartate Amino Transferase 29 U/L (17-59); Bilirubin,Total 0.6 mg/dL (0.2-1.3); Blood Urea Nitrogen 16 mg/dL (9-20); Calcium 9.4 mg/dL (8.4-10.2); Carbon Dioxide 23 mmol/L (22-30); Chloride 105 mmol/L (98-107); Estimated CRCL calculation 59 ml/min; Estimated Glomerular Filt Rate > 60; Glucose 108 mg/dL (65-110); Lipase 231 U/L (23-300); Potassium 3.7 mmol/L (3.4-5.0); Sodium 137 mmol/L (137-145); Total Protein 7.4 g/dL (6.3-8.2)
[2025-02-07 04:37] LABS: Troponin I < 0.012 ng/mL (0.000-0.034)
[2025-02-07] MEDS: LIDOCAINE 5% PATCH 1 PATCH TRANSDERM (05:03)
[2025-02-07] MEDS: KETOROLAC 15 MG/ML VIAL (*BKC) IV PUSH (05:04)
== END 2025-02-07 05:58 | disposition home or self-care (01) ==
PROVIDERS: Emergency Provider Student in an Organized Health Care Education/Training Program
DX: R07.89 Other chest pain (principal); I25.10 Atherosclerotic heart disease of native coronary artery without angina pectoris
CPT/HCPCS: 36415; 71046; 80053; 83690; 84484; 85025; 85610; 85730; 93005; 96374; 99284; A9270; J1885